=== PATIENT | female | born 1950 | race Caucasian/White ===

== ENCOUNTER 2017-03-16 13:49 | Emergency (ER) | payer MEDICARE, BC ==
[2017-03-16] MEDS ORDERED: Sodium Chloride 0.9% 2.5 ML Syringe FLUSH PRN (14:17)
[2017-03-16] MEDS ORDERED: Sodium Chloride 0.9% 1,000 ML IV ONE (14:17)
[2017-03-16] MEDS ORDERED: Sodium Chloride 0.9% 10 ML Syringe FLUSH PRN (14:17)
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
[2017-03-16 15:21] LABS: CHLORIDE,CL 103 mmol/L (98-110); SODIUM,NA 139 mmol/L (136-146)
--- NOTE | 2017-03-16 15:31 | CT ---
EXAMINATION: Non contrast CT head. Coronal and sagittal reformats. HISTORY: Pain, fall Comparison: MRI dated 02/18/2017 FINDINGS: No evidence of a mass, midline shift, hydrocephalus or edema. Mild generalized atrophy. Mild subcort ical and periventricular white matter hypodensities. There is a small focus of cortical hemorrhage in the right frontal lobe posteriorly and medially. No extra-axial fluid collection. No hypoattenuation changes in the major vascular territories to suggest acute infarct. No abnormal intracranial calcifications are detected. No evidence of substantial vascular calcificat ions. Paranasal sinuses and mastoid air cells are well aerated without substantial findings. There is a sm all periorbital supraorbital collection noted, also likely a small hematoma. The intraorbital content s appear intact. Pituitary fossa appears unremarkable. Calvarium is intact. No evidence of skull fracture. There is a large hematoma within the subcutaneous tissues overlying the right parietal region. IMPRESSION: 1. Small petechial cortical hemorrhage in the right frontal lobe posteriorly. 2. Right periorbital and right posterior parietal subcutaneous hematomas. 3. Mild small vessel ischemic changes.
--- NOTE | 2017-03-16 15:35 | CT ---
EXAMINATION: CT cervical spine HISTORY: Fall COMPARISON: MRI dated 02/18/2017 TECHNIQUE: Axial CT images obtained through the cervical spine without contrast. Coronal and sagittal reconstructions obtained. FINDINGS: There is mild reversal of the normal cervical lordosis. The vertebral body heights are michael sly maintained. Moderate marginal osteophytes are noted most prominent from C4 to C7. There is no fra cture or acute osseous abnormality demonstrated. Facet arthritic changes are noted. Temporomandibular joints are symmetric. The paravertebral soft tissues appear normal. No cervical lymphadenopathy. The lung apices are clear. IMPRESSION: 1. Degenerative changes without acute findings.
--- NOTE | 2017-03-16 15:37 | CR ---
EXAMINATION: Left wrist HISTORY: Fall COMPARISON: None TECHNIQUE: 3 views FINDINGS/IMPRESSION: There is no acute osseous abnormality, dislocation, or fracture. Moderate osteoa rthritic changes are noted at the first CMC joint. There is mild negative ulnar variance. Bone minera lization is otherwise normal.
--- NOTE | 2017-03-16 15:38 | CR ---
EXAMINATION: Left thumb HISTORY: Pain COMPARISON: None TECHNIQUE: 3 views FINDINGS/IMPRESSION: Moderate degenerative changes noted at the first CMC joint and the first interph alangeal joint. No fracture or acute osseous abnormality noted. Bone mineralization and joint spaces are otherwise preserved.
--- NOTE | 2017-03-16 15:39 | CR ---
EXAMINATION: Portable chest radiograph. HISTORY: Fall. FINDINGS: The trachea is midline. The cardiomediastinal silhouette is within normal limits. No pulmonary infilt rates, effusions or pneumothorax. Osseous structures appear unremarkable. IMPRESSION: No acute cardiopulmonary process.
[2017-03-16] MEDS ORDERED: Acetaminophen 325 MG Tab PO ONE (16:00)
[2017-03-16 16:22] VITALS: BP 180/83
== END 2017-03-16 16:31 ==
LOC: MW.ED 13:49
DX: S06.300A Unspecified focal traumatic brain injury without loss of consciousness, initial encounter (principal); S60.812A Abrasion of left wrist, initial encounter; S60.312A Abrasion of left thumb, initial encounter; I10 Essential (primary) hypertension; M19.90 Unspecified osteoarthritis, unspecified site; Z98.49 Cataract extraction status, unspecified eye; Z98.890 Other specified postprocedural states; Z79.899 Other long term (current) drug therapy; W10.8XXA Fall (on) (from) other stairs and steps, initial encounter
CPT/HCPCS: 36415; 70450; 71010; 72125; 73110; 73140; 80053; 81001; 84484; 85025; 85610; 96360; 99285; A9270; J7040; 99283

== ENCOUNTER 2018-10-23 09:33 | Inpatient (IN) | payer MEDICARE, BC ==
[~2018-10-23 09:33] MED LIST: Acetaminophen 1,000 MG in Premix Bag 1 BAG IV SCH; Famotidine 20 MG/2 ML SDV IVPUSH SCH; Lidocaine 2% 5 ML SDV ONE; Midazolam 1 MG/ML 2 ML SDV ONE; Propofol 200 MG/20 ML SDV ONE; Ropivacaine 49.25 ML, Ketorolac 30 MG, EPINEPHrine 0.5 MG, cloNIDine 80 MCG in Sodium C... INJECT SCH; Scopolamine 1.5 MG Transdermal Patch TRDERM SCH; Tranexamic Acid 2,000 MG in Sodium Chloride 0.9% 100 ML IV ONE; ceFAZolin 2 GM in Premix Bag 1 BAG IV SCH; fentaNYL 100 MCG/2 ML SDV ONE
[2018-10-23] MEDS ORDERED: Sodium Chloride 0.9% 0 ML ONE (10:06)
[2018-10-23] MEDS ORDERED: ceFAZolin 1 GM Vial ONE (10:06)
--- NOTE | 2018-10-23 10:28 | PCM.PREANE ---
Preanesthetic Assessment - Anesthesia/Transfusion/Family Hx Anesthesia History: Prior Anesthesia Without Reaction Other Type of Anesthesia Reaction Comment: son has problem waking up after surgery Transfusion History: No Prior Transfusion(s) - Review of Systems General: No Symptoms Pulmonary: No Symptoms Cardiovascular: No Symptoms Gastrointestinal: No Symptoms Neurological: No Symptoms Other: Reports: None - Physical Assessment NPO Status Date: 10/22/18 NPO Status Time: 23:00 Height: 1.73 m Weight: 97.976 kg ASA Class: 3 Mental Status: Alert & Oriented x3 Airway Class: Mallampati = 3 Dentition: Reports: Normal Dentition Thyro-Mental Finger Breadths: 3 Mouth Opening Finger Breadths: 3 ROM/Head Extension: Full Lungs: Clear to Auscultation, Normal Respiratory Effort Cardiovascular: Regular Rate, Regular Rhythm - Allergies Allergies/Adverse Reactions: Allergies Allergy/AdvReac Type Severity Reaction Status Date / Time No Known Allergies Allergy Verified 10/17/18 11:50 - Acknowledgements Anesthesia Type Planned: Spinal (with MAC. I discussed risks such as back pain, awareness, and conversion to general anesthesia if the surgery is prolonged or the spinal anesthetic fails. ) Pt an Appropriate Candidate for the Planned Anesthesia: Yes Alternatives and Risks of Anesthesia Discussed w Pt/Guardian: Yes Pt/Guardian Understands and Agrees with Anesthesia Plan: Yes PreAnesthesia Questionnaire - Past Health History Medical/Surgical History: Denies Medical/Surgical History HEENT History: Reports: Macular Degeneration, Other (See Below) Other HEENT History: wears glasses Cardiovascular History: Reports: High Cholesterol, Hypertension Other Cardiovascular History: ekg from 2019: sr with first degree AV block and incomplete right bbb, marked left axis deviation, unchanged from previous ekgs per primary care doctor. Respiratory History: Reports: Sleep Apnea Other Respiratory History: uses CPAP. She has postnasal drip in the mornings which is from her CPAP. Gastrointestinal History: Reports: None Genitourinary History: Reports: None LMP (Approximate): Other (See Below) (Currently has LABIA SORES secondary to low estrogen.) Musculoskeletal History: Reports: Back Pain, Chronic (states that the left hip is the source of her back pain. left hip, preop pain score 6/10. Ambulates with a cane-has a fear of falling due to previous falls in the past, one which resulted in a brain breed-2017. Neurodeficit is "short term memory loss".), Osteoarthritis Other Musculoskeletal History: spinal stenosis Neurological History: Reports: Concussion, Head Trauma Other Neuro History: small brain bleed due to fall in Mar 2017 Psychiatric History: Reports: Depression, Panic Attack (and anxiety-she has a fear of falling.) Endocrine/Metabolic History: Reports: Obesity/BMI 30+ Hematologic History: Reports: None Immunologic History: Reports: None Oncologic (Cancer) History: Reports: Breast (breast cancer-radiation December of 2017. Cured) Dermatologic History: Reports: None - Infectious Disease History Infectious Disease History: Reports: Chicken Pox, Mumps - Past Surgical History Head Surgeries/Procedures: Reports: None HEENT Surgical History: Reports: Cataract Surgery Cardiovascular Surgical History: Reports: None Respiratory Surgical History: Reports: None GI Surgical History: Reports: Colonoscopy Female Surgical History: Reports: Breast Biopsy, Hysterectomy, Mastectomy, Oophorectomy Other Female Surgeries/Procedures: left modified mastectomy Endocrine Surgical History: Reports: None Neurological Surgical History: Reports: None Musculoskeletal Surgical History: Reports: Carpal Tunnel Oncologic Surgical History: Reports: Biopsy of Breast, Mastectomy Dermatological Surgical History: Reports: None - SUBSTANCE USE Smoking Status *Q: Never Smoker Recreational Drug Use History: No - HOME MEDS Home Medications: Home Meds Losartan/Hydrochlorothiazide [Losartan-HCTZ 50-12.5 MG] 1 each PO DAILY [History] Acetaminophen [Tylenol Extra Strength] 2 tab PO ASDIRECTED PRN 10/17/18 [History ] Anastrozole [Arimidex] 1 mg PO DAILY 10/17/18 [History] Calcium Carb & Citrate/Vit D3 [Calcium + D3 ER Tablet] 1 tab PO BID 10/17/18 [ History] Carboxymethyl/Glycerin/Poly80 [Refresh Optive Advanced Drops] 1 drop EYEBOTH ASDIRECTED PRN 10/17/18 [History] Estrogens, Conjugated [Premarin Vaginal Crm] 1 applic TOP ASDIRECTED 10/17/18 [ History] Gluc HCl/Csa/José Antonio Hy/Hyalur Ac [Glucosamine Chondroitin] 1 tab PO BID 10/17/18 [ History] Ibuprofen 600 mg PO QID PRN 10/17/18 [History] Magnesium Oxide 1 tab PO BEDTIME 10/17/18 [History] [place]-3/DHA/Epa/Fish Oil [Fish Oil 1,000 mg Softgel] 1 mg PO BID 10/17/18 [ History] Polyethylene Glycol 3350 [Miralax] 1 dose PO DAILY 10/17/18 [History] Rosuvastatin [Crestor] 10 mg PO DAILY 10/17/18 [History] Vit A/Vit C/Vit E/Zinc/Copper [Preservision] 1 tab PO BID 10/17/18 [History] - CURRENT (IN HOUSE) MEDS Current Meds: Current Medications Famotidine (Pepcid) 40 mg IVPUSH ONARRIVE SMITH Acetaminophen 1,000 mg/ Premix 100 mls @ 400 mls/hr IV ONARRIVE SMITH Cefazolin Sodium/Dextrose 2 gm (/ Premix) 50 mls @ 100 mls/hr IV ONCALL SMITH Ropivacaine 49.25 ml/Ketorolac Tromethamine 30 mg/Epinephrine HCl 0.5 mg/ Clonidine HCl 80 mcg/ Sodium Chloride 100 mls @ 50 mls/sec INJECT ASDIRECTED SMITH Lactated Ringer's (Ringers, Lactated) 1,000 mls @ 100 mls/hr IV ASDIRECTED SMITH Scopolamine (Transderm-Scop) 1.5 mg TRDERM ONARRIVE SMITH Discontinued Medications Cefazolin Sodium (Ancef) Confirm Administered Dose 2 gm .ROUTE .STK-MED ONE Stop: 10/23/18 10:07 Fentanyl (Sublimaze) Confirm Administered Dose 100 mcg .ROUTE .STK-MED ONE Stop: 10/23/18 08:38 Tranexamic Acid 2,000 mg/ (Sodium Chloride) 120 mls @ 600 mls/hr IV ASDIRECTED ONE Stop: 10/23/18 06:11 Sodium Chloride (Normal Saline) Confirm Administered Dose 20 mls @ as directed .ROUTE .STK-MED ONE Stop: 10/23/18 10:07 Lidocaine (Xylocaine-Mpf 2%) Confirm Administered Dose 5 ml .ROUTE .STK-MED ONE Stop: 10/23/18 08:42 Midazolam HCl (Versed 1 Mg/Ml) Confirm Administered Dose 2 mg .ROUTE .STK-MED ONE Stop: 10/23/18 08:39 Propofol (Diprivan 20 Ml) Confirm Administered Dose 400 mg .ROUTE .STK-MED ONE Stop: 10/23/18 08:38 Tranexamic Acid (Cyklokapron) Confirm Administered Dose 2,000 mg .ROUTE .STK- MED ONE Stop: 10/23/18 09:53
[2018-10-23] MEDS: Lactated Ringers 1,000 ML IV SCH ×2 (10:32→14:30)
[2018-10-23] MEDS ORDERED: Labetalol 100 MG/20 ML MDV IVPUSH STA (10:33)
[2018-10-23] MEDS ORDERED: Midazolam 1 MG/ML 2 ML SDV ONE (11:57)
[2018-10-23] MEDS ORDERED: Propofol 200 MG/20 ML SDV ONE (12:42)
[2018-10-23] MEDS ORDERED: Sodium Chloride 0.9% 2.5 ML Syringe FLUSH PRN (13:15)
[2018-10-23] MEDS ORDERED: Docusate Sodium 100 MG Cap PO PRN (13:15)
[2018-10-23] MEDS ORDERED: Bisacodyl 10 MG Supp RECTAL PRN (13:15)
[2018-10-23] MEDS ORDERED: Sodium Chloride 0.9% 10 ML Syringe FLUSH PRN (13:15)
[2018-10-23] MEDS ORDERED: Morphine PF 30 MG/30 ML PCA Vial IV PRN (13:15)
[2018-10-23] MEDS ORDERED: Ondansetron 4 MG/2 ML SDV IVPUSH PRN (13:15)
[2018-10-23] MEDS ORDERED: Aluminum Hydroxide/Magnesium Hydroxide/Simethicone Susp 30 ML Cup PO PRN (13:15)
[2018-10-23] MEDS ORDERED: diphenhydrAMINE 25 MG Cap PO PRN (13:15)
[2018-10-23] MEDS ORDERED: Carboxymethylcellulose Sodium 0.5% Ophth Soln 0.4 ML UD Box of 30 EYEBOTH PRN (13:19)
--- NOTE | 2018-10-23 13:34 | PCM.OPNOTE ---
- General Post-Op/Procedure Note Date of Surgery/Procedure: 10/23/18 Operative Procedure(s): R TKA Post-Op Diagnosis: DJD R knee Anesthesia Technique: Moderate Sedation, Spinal Primary Surgeon: Daniela You Herpetology Teacher: Mikaela Chisholm Herpetology Teacher: Monique Landers EBL in mLs: 50 Condition: Good Free Text/Narrative:: 36 min-tt #[id number]
[2018-10-23] MEDS ORDERED: EPINEPHrine 1:10,000 1 MG/10 ML Syringe IVPUSH PRN (13:40)
[2018-10-23] MEDS ORDERED: Naloxone 0.4 MG/ML Syringe IVPUSH PRN (13:40)
[2018-10-23] MEDS ORDERED: Albuterol 0.083% 2.5 MG/3 ML Neb Soln NEB PRN (13:40)
[2018-10-23] MEDS ORDERED: 50% Dextrose in Water 50 ML Syringe IVPUSH PRN (13:40)
[2018-10-23] MEDS ORDERED: fentaNYL 100 MCG/2 ML SDV IVPUSH PRN (13:40)
[2018-10-23] MEDS ORDERED: Atropine 0.1 MG/ML 10 ML Syringe IVPUSH PRN ×2 (13:40)
[2018-10-23] MEDS: Ketorolac 30 MG/ML SDV IVPUSH SCH ×2 (13:49→19:10)
[2018-10-23] MEDS ORDERED: Meperidine PF 25 MG/ML Syringe ONE (13:56)
[2018-10-23] MEDS ORDERED: Meperidine PF 25 MG/ML Syringe IVPUSH PRN (13:56)
--- NOTE | 2018-10-23 14:25 | PCM.POSTAN ---
POST ANESTHESIA ASSESSMENT - MENTAL STATUS Mental Status: Alert, Oriented - RESPIRATORY Respiratory Status: Respiratory Rate WNL, Airway Patent, O2 Saturation Stable - CARDIOVASCULAR CV Status: Pulse Rate WNL, Blood Pressure Stable - GASTROINTESTINAL GI Status: No Symptoms - PAIN Pain Score: 0 - POST OP HYDRATION Hydration Status: Adequate & Stable - OBSERVATIONS Free Text/Narrative:: Pt stable for discharge to phase II on med/surg
--- NOTE | 2018-10-23 17:17 | CR ---
EXAMINATION: Right knee HISTORY: Arthroplasty COMPARISON: Radiographs dated 03/29/2017. TECHNIQUE: 2 views FINDINGS/IMPRESSION: Right total knee hardware is demonstrated in good position and alignment. Postoperative soft tissue changes are noted.
[2018-10-23] MEDS: Acetaminophen 1,000 MG in Premix Bag 1 BAG IV SCH ×2 (18:15→23:21)
--- NOTE | 2018-10-23 19:43 | OR ---
SURGEON: Daniela You MD DATE OF PROCEDURE: 10/23/2018 PREOPERATIVE DIAGNOSIS: Degenerative joint disease, right knee, tricompartmental. POSTOPERATIVE DIAGNOSIS: Degenerative joint disease, right knee, tricompartmental. PROCEDURE: Right total knee arthroplasty using patient-specific instrumentation. TURPENTINE DISTILLER: Mikaela Chisholm PA-C and AILIN Delgado. ANESTHESIA: Spinal with sedation. ESTIMATED BLOOD LOSS: 50 mL. TOURNIQUET TIME: 36 minutes. COMPLICATIONS: None. DEEP VENOUS THROMBOSIS PROPHYLAXIS: PAS boot and OSMANY hose to the nonoperative leg. IMPLANTS USED: Dejon Persona femoral component size 9 narrow (LPS), tibial component size E, 10 mm all-polyethylene articular surface, and 32 mm all-polyethylene patella. INTRAOPERATIVE FINDINGS: Showed tricompartmental degenerative changes. Osteophyte formation was also noted. No significant synovitis was found. BRIEF HISTORY: Laura is a 68-year-old female who has had complaint of progressive right knee pain. X-rays did confirm tricompartmental degenerative changes. Due to her lack of response to conservative treatment, I did recommend surgical intervention. The risks and goals of procedure were discussed with the patient and were documented preoperatively. She agreed to proceed. DESCRIPTION OF PROCEDURE: The patient was properly identified and brought to the operating room. The patient was then transferred from the operating room cart and placed on the operating table in a supine position. Anesthesia was administered by the anesthesia staff. After adequate anesthesia was obtained, a well-padded tourniquet was applied to the surgical lower extremity. Argueta catheter was placed. The lower extremity was then prepped in standard fashion using ChloraPrep solution. It was then sterilely draped. A time-out was performed to ensure correct site and procedure. Preoperative antibiotics were given along with one gram of tranexamic acid IV. The surgical site had been marked preoperatively. An Esmarch was used to exsanguinate the right lower extremity and the tourniquet was inflated. An incision was made over the anterior aspect of the knee. The subcutaneous tissues were dissected down to the level of the fascia. A medial parapatellar approach to the knee was made. A portion of the infrapatellar fat pad was then excised. The distal femur was then exposed. The femoral patient-specific cutting guide was then placed. Pins were also placed. The distal femoral cutting block was placed and the distal femoral cut was made. Instrumentation was then removed. Both Whitesides' line and the epicondylar axis were then marked with electrocautery. The 4-in-1 cutting block was placed. This was placed in a slightly externally rotated position, which corresponded well with the previously drawn lines. The cutting guide was then pinned into position. An Patrick wing guide was used to check the depth of resection of our anterior condylar cut and it was felt that no notching would occur. The anterior condylar cut was then made followed by the posterior condylar cut. Both the posterior chamfer and anterior chamfer cuts were then made. The cutting block was then removed along with the excess bony remnants. We then turned our attention to the tibia. The anterior cruciate ligament and posterior cruciate ligament were released and a posterior cruciate ligament retractor was placed to allow the tibia to be pulled anteriorly. The tibial patient-specific guide was then placed on the proximal tibia. This fit anatomically. The pins were then placed. The proximal tibia cutting guide was then placed and screwed into position. The proximal tibial resection was then made with care being taken to protect the patellar tendon. The bony resection was then removed. The remainder of the medial and lateral meniscus were then excised. Care was taken to protect the popliteus tendon. The tibia was then sized to the appropriate size. The distal femur was then elevated. The posterior capsule was stripped off of the distal femur both medially and laterally. The posterior capsule along with the medial and lateral gutters were then injected with a standard mixture consisting of clonidine, epinephrine, Toradol, and Ropivacaine, unless any allergies were found preoperatively. The femoral component was then placed onto the distal femur in a slightly lateral position. This fit the femur well. A box cut was then made without difficulty. This was then removed. The tibial trial along with the polyethylene liner was then placed. The knee came easily into full extension and was stable to varus and valgus stressing both in full extension and flexion. Any additional releases were performed at this time. We then returned our attention to the patella. The patella was everted and towel clamps were used to hold the patella in position. It was resected to a 15 millimeter thickness. It was then sized to the appropriate size. It was prepared in the usual fashion after placing the predetermined size clamps. This was placed in a slightly superior and medial position. The clamp was then removed. The patellar trial button was placed. The knee was taken through a range of motion using the no-touch technique. The patella tracked centrally. A drop patrica was then placed to check alignment. All instruments were then removed from the knee. The tibial sizer was then placed on the tibia. The tibia was prepared in the usual fashion using the reamer and broach. This was then removed. All bony surfaces were copiously irrigated with Pulsavac solution. They were then suctioned dry. Cement was prepared on the back table in the usual manner. Once it was prepared, the bone ends were again suctioned dry. The tibia was cemented into place first. This was malleted into position. Excess cement was then cleared. The femur was then placed in a similar manner. We placed the polyethylene trial into place and the knee was brought into full extension. An axial load was placed while keeping the knee in full extension. The patella button was also cemented into position and the clamp was used to hold this in place as the cement was allowed to cure. The wound was again copiously irrigated with saline solution using a Pulsavac patron attendant. After we had adequate curing of the cement, the knee was again taken through a range of motion. The size of the polyethylene was then determined. The polyethylene trial was then removed. The tibial tray was suctioned to make sure there was no remaining soft tissue or cement. Excess cement was cleared from around the edges of the prosthesis as well. The tourniquet was then deflated. We were able to observe for any excess bleeding and none was noted. Electrocautery was used to maintain hemostasis. An additional gram of tranexamic acid was given IV. The retractors were again placed and the predetermined polyethylene was then placed. This was locked into position without difficulty. The knee was again taken through a range of motion with no change from the prior exam. The fascial layer was closed with Number One Vicryl. The subcutaneous tissues were closed with 2-0 Vicryl. The skin was closed with willie. Xeroform gauze was placed over the wound and a bulky dressing was applied. The patient was then awakened from anesthesia and transferred back to the operating room cart. They were brought to the recovery room in stable condition. All needle and sponge counts were correct. MURIEL / YAHAIRA /[id number] MTDD
[2018-10-23] MEDS: Magnesium Oxide 400 MG Tab PO SCH (20:18)
[2018-10-23] MEDS: ceFAZolin 2 GM in Premix Bag 1 BAG IV SCH (20:18)
[2018-10-23] MEDS: PRESERVISION PO SCH (20:20)
[2018-10-23] MEDS: oxyCODONE 5 MG Tab PO PRN (23:21)
[2018-10-24] MEDS: Ketorolac 30 MG/ML SDV IVPUSH SCH (01:39)
[2018-10-24] MEDS: Lactated Ringers 1,000 ML IV SCH (01:50)
[2018-10-24] MEDS: ceFAZolin 2 GM in Premix Bag 1 BAG IV SCH (03:41)
[2018-10-24] MEDS: oxyCODONE 5 MG Tab PO PRN (03:48)
[2018-10-24] MEDS: Acetaminophen 1,000 MG in Premix Bag 1 BAG IV SCH (05:12)
[2018-10-24] MEDS ORDERED: Morphine 2 MG/ML Syringe IVPUSH PRN (06:00)
--- NOTE | 2018-10-24 08:22 | PCM.SURGPN ---
- General Info Date of Service: 10/24/18 Date of Surgery/Procedure: 10/23/18 POD#: 1 Functional Status: Reports: Pain Controlled - Review of Systems General: Reports: No Symptoms Pulmonary: Reports: No Symptoms Cardiovascular: Reports: No Symptoms Gastrointestinal: Reports: Nausea, Vomiting Musculoskeletal: Reports: Leg Pain Systems Review Comment:: pt up to chair for breakfast some nausea/vomiting last night, but tolerating bland diet so far today pain controlled with PO/IV pain medications first time OOB to chair this morning concerned with ascending stairs at home after discharge - Patient Data Vitals - Most Recent: Last Vital Signs Temp 97.6 F 10/24/18 07:48 Pulse 64 10/24/18 07:48 Resp 15 10/24/18 07:48 BP 101/54 L 10/24/18 07:48 Pulse Ox 95 10/24/18 07:48 Weight - Most Recent: 97.976 kg I&O - Last 24 Hours: Intake & Output 10/23/18 10/24/18 10/24/18 22:59 06:59 14:59 Intake Total 333 1908 Output Total 425 1400 Balance -92 508 Lab Results Last 24 Hrs: Laboratory Results - last 24 hr 10/23/18 10/24/18 Range/Units 10:37 05:00 Hgb 11.4 L (12.0-16.0) g/dL Hct 35.7 L (36.0-46.0) % Blood Type A POSITIVE Antibody Screen NEGATIVE Med Orders - Current: Current Medications Al Hydroxide/Mg Hydroxide (Mag-Al Plus) 30 ml PO Q4H PRN PRN Reason: Indigestion Anastrozole (Arimidex) 1 mg PO DAILY [facility] Artificial Tears (Refresh Plus 0.5%) 1 each EYEBOTH ASDIRECTED PRN PRN Reason: Dry Eyes Aspirin (Ecotrin) 325 mg PO BID [facility] Bisacodyl (Dulcolax) 10 mg RECTAL DAILY PRN PRN Reason: Constipation Celecoxib (Celebrex) 200 mg PO BID [facility] Diphenhydramine HCl (Benadryl) 25 - 50 mg PO Q6H PRN PRN Reason: Itching Docusate Sodium (Colace) 100 mg PO BID PRN PRN Reason: Constipation Famotidine (Pepcid) 40 mg IVPUSH ONARRIVE [facility] Last Admin: 10/23/18 10:32 Dose: 40 mg Famotidine (Pepcid) 40 mg PO DAILY [facility] HCTZ/Losartan Potassium (Hyzaar 50-12.5 Mg) 1 tab PO DAILY [facility] Acetaminophen 1,000 mg/ Premix 100 mls @ 400 mls/hr IV ONARRIVE [facility] Last Admin: 10/23/18 10:32 Dose: 400 mls/hr Lactated Ringer's (Ringers, Lactated) 1,000 mls @ 100 mls/hr IV ASDIRECTED [facility] Last Admin: 10/24/18 01:50 Dose: 100 mls/hr Magnesium Oxide (Magnesium Oxide) 400 mg PO BEDTIME [facility] Last Admin: 10/23/18 20:18 Dose: 400 mg Morphine Sulfate (Morphine) 1 - 3 mg IVPUSH Q3H PRN PRN Reason: Pain Ondansetron HCl (Zofran) 4 mg IVPUSH Q6H PRN PRN Reason: Nausea/Vomiting Last Admin: 10/23/18 21:06 Dose: 4 mg Oxycodone/Acetaminophen (Percocet 325-5 Mg) 1 - 2 tab PO Q4H PRN PRN Reason: Pain [Preservision] 1 Tab 1 each PO BID [facility] Last Admin: 10/23/18 20:20 Dose: Not Given Polyethylene Glycol (Miralax) 17 gm PO DAILY [facility] Rosuvastatin Calcium (Crestor) 10 mg PO DAILY [facility] Scopolamine (Transderm-Scop) 1.5 mg TRDERM ONARRIVE [facility] Last Admin: 10/23/18 10:32 Dose: 1.5 mg Sodium Chloride (Saline Flush) 10 ml FLUSH ASDIRECTED PRN PRN Reason: Keep Vein Open Sodium Chloride (Saline Flush) 2.5 ml FLUSH ASDIRECTED PRN PRN Reason: Keep Vein Open Discontinued Medications Albuterol (Proventil Neb Soln) 2.5 mg NEB ONETIME PRN PRN Reason: Wheezing Atropine Sulfate (Atropine 0.1 Mg/Ml) 0.5 mg IVPUSH ASDIRECTED PRN PRN Reason: Hypo-perfusion Atropine Sulfate (Atropine 0.1 Mg/Ml) 1 mg IVPUSH ASDIRECTED PRN PRN Reason: Hypo-Perfusion Cefazolin Sodium (Ancef) Confirm Administered Dose 2 gm .ROUTE .STK-MED ONE Stop: 10/23/18 10:07 Dextrose/Water (Dextrose 50% In Water) 50 ml IVPUSH ASDIRECTED PRN PRN Reason: Hypoglycemia Epinephrine HCl (Epinephrine 1:10,000) 1 mg IVPUSH ASDIRECTED PRN PRN Reason: ACLS Guidelines Fentanyl (Sublimaze) Confirm Administered Dose 100 mcg .ROUTE .STK-MED ONE Stop: 10/23/18 08:38 Fentanyl (Sublimaze) 50 mcg IVPUSH Q5M PRN PRN Reason: Pain Cefazolin Sodium/Dextrose 2 gm (/ Premix) 50 mls @ 100 mls/hr IV ONCALL [facility] Ropivacaine 49.25 ml/Ketorolac Tromethamine 30 mg/Epinephrine HCl 0.5 mg/ Clonidine HCl 80 mcg/ Sodium Chloride 100 mls @ 50 mls/sec INJECT ASDIRECTED [facility] Tranexamic Acid 2,000 mg/ (Sodium Chloride) 120 mls @ 600 mls/hr IV ASDIRECTED ONE Stop: 10/23/18 06:11 Last Admin: 10/23/18 14:30 Dose: Not Given Sodium Chloride (Normal Saline) Confirm Administered Dose 0 mls @ as directed .ROUTE .STK-MED ONE Stop: 10/23/18 10:07 Cefazolin Sodium/Dextrose (Ancef) Confirm Administered Dose 100 mls @ as directed .ROUTE .[facility] ONE Stop: 10/23/18 12:31 Acetaminophen 1,000 mg/ Premix 100 mls @ 400 mls/hr IV Q6H [facility] Stop: 10/24/18 06:14 Last Admin: 10/24/18 05:12 Dose: 400 mls/hr Cefazolin Sodium/Dextrose 2 gm (/ Premix) 50 mls @ 100 mls/hr IV Q8H [facility] Stop: 10/24/18 04:29 Last Admin: 10/24/18 03:41 Dose: 100 mls/hr Ketorolac Tromethamine (Toradol) 30 mg IVPUSH Q6H [facility] Stop: 10/24/18 05:00 Last Admin: 10/24/18 01:39 Dose: 30 mg Labetalol HCl (Normodyne) 5 mg IVPUSH ONETIME STA; Protocol Stop: 10/23/18 10:34 Last Admin: 10/23/18 14:30 Dose: Not Given Lidocaine (Xylocaine-Mpf 2%) Confirm Administered Dose 5 ml .ROUTE .STK-MED ONE Stop: 10/23/18 08:42 Meperidine HCl (Demerol) 12.5 mg IVPUSH .ONETIME PRN PRN Reason: Shivering Meperidine HCl (Demerol) Confirm Administered Dose 25 mg .ROUTE .STK-MED ONE Stop: 10/23/18 13:57 Last Admin: 10/23/18 14:30 Dose: Not Given Midazolam HCl (Versed 1 Mg/Ml) Confirm Administered Dose 2 mg .ROUTE .STK-MED ONE Stop: 10/23/18 08:39 Midazolam HCl (Versed 1 Mg/Ml) Confirm Administered Dose 2 mg .ROUTE .STK-MED ONE Stop: 10/23/18 11:58 Morphine Sulfate (Morphine Distributor Cleaner 30 Mg In 30 Ml) 30 mg IV ASDIRECTED PRN; Protocol PRN Reason: Pain Stop: 10/24/18 06:00 Last Admin: 10/23/18 14:22 Dose: 30 mg Naloxone HCl (Narcan) 0.1 mg IVPUSH ASDIRECTED PRN PRN Reason: Respiratory Depression Oxycodone HCl (Oxycodone) 5 - 10 mg PO Q4H PRN PRN Reason: Pain Stop: 10/24/18 08:00 Last Admin: 10/24/18 03:48 Dose: 5 mg Propofol (Diprivan 20 Ml) Confirm Administered Dose 400 mg .ROUTE .STK-MED ONE Stop: 10/23/18 08:38 Propofol (Diprivan 20 Ml) Confirm Administered Dose 400 mg .ROUTE .STK-MED ONE Stop: 10/23/18 12:43 Tranexamic Acid (Cyklokapron) Confirm Administered Dose 2,000 mg .ROUTE .STK- MED ONE Stop: 10/23/18 09:53 - Exam Wound/Incisions: Dressing Dry and Intact. No: Drainage, Erythema General: Alert, Oriented Cardiovascular: Regular Rate, Regular Rhythm Extremities: Other (exam RLE - at/ehl/gastroc 5/5, dp 2+, sensation intact distally) Physical Findings Comment:: vss, afeb hgb 11.4 uo 2085mL - Problem List Review Problem List Initiated/Reviewed/Updated: Yes - My Orders Last 24 Hours: Active Orders 24 hr Category Date Time Status Blood Glucose Check, Bedside [RC] PRN Care 10/23/18 13:40 Active Communication Order [RC] PRN Care 10/23/18 13:16 Active Communication Order [RC] PRN Care 10/23/18 13:16 Active Insert Urinary Catheter [OM.PC] Q24H Care 10/23/18 08:00 Ordered Neurovascular Check [RC] Q2HR Care 10/23/18 13:16 Active Notify Provider Vital Signs [RC] ASDIRECTED Care 10/23/18 13:16 Active Oxygen Therapy [RC] PRN Care 10/23/18 13:40 Active RT Aerosol Therapy [RC] ASDIRECTED Care 10/23/18 13:40 Active RT Incentive Spirometry [RC] Q1HWA Care 10/23/18 13:16 Active Ready for Discharge [RC] PER UNIT ROUTINE Care 10/23/18 13:31 Active Urinary Catheter Removal [RC] ASDIRECTED Care 10/24/18 06:00 Active Vital Signs [RC] PER UNIT ROUTINE Care 10/23/18 13:16 Active Vital Signs [RC] PER UNIT ROUTINE Care 10/23/18 13:40 Active Wound Care [RC] DAILY Care 10/23/18 13:16 Active PT Evaluation and Treatment [CONS] Routine Cons 10/23/18 13:16 Active HEMOGLOBIN/HEMATOCRIT,HH [HEME] DAILY Lab 10/25/18 06:00 Ordered Acetaminophen/oxyCODONE [Percocet 325-5 MG] Med 10/24/18 06:00 Active 1 - 2 tab PO Q4H PRN Alum Hydrox/Mag Hydrox/Simeth [Mag-Al Plus] Med 10/23/18 13:15 Active 30 ml PO Q4H PRN Anastrozole [Arimidex] Med 10/24/18 09:00 Active 1 mg PO DAILY Aspirin [Ecotrin] Med 10/24/18 09:00 Active 325 mg PO BID Bisacodyl [Dulcolax] Med 10/23/18 13:15 Active 10 mg RECTAL DAILY PRN Carboxymethylcellulose Sodium [Refresh Plus 0.5%] Med 10/23/18 13:19 Active 1 each EYEBOTH ASDIRECTED PRN Celecoxib [CeleBREX] Med 10/24/18 09:00 Active 200 mg PO BID Docusate Sodium [Colace] Med 10/23/18 13:15 Active 100 mg PO BID PRN Famotidine [Pepcid] Med 10/24/18 09:00 Active 40 mg PO DAILY Hydrochlorothiazide/Losartan [Hyzaar 50-12.5 MG] Med 10/24/18 09:00 Active 1 tab PO DAILY Magnesium Oxide Med 10/23/18 21:00 Active 400 mg PO BEDTIME Morphine Med 10/24/18 06:00 Active 1 - 3 mg IVPUSH Q3H PRN Ondansetron [Zofran] Med 10/23/18 13:15 Active 4 mg IVPUSH Q6H PRN Patient's Own Medication [Ptom] Med 10/23/18 21:00 Active 1 each PO BID Polyethylene Glycol 3350 [MiraLAX] Med 10/24/18 09:00 Active 17 gm PO DAILY Rosuvastatin [Crestor] Med 10/24/18 09:00 Active 10 mg PO DAILY Sodium Chloride 0.9% [Saline Flush] Med 10/23/18 13:15 Active 10 ml FLUSH ASDIRECTED PRN Sodium Chloride 0.9% [Saline Flush] Med 10/23/18 13:15 Active 2.5 ml FLUSH ASDIRECTED PRN diphenhydrAMINE [Benadryl] Med 10/23/18 13:15 Active 25 - 50 mg PO Q6H PRN Antiembolic Hose [OM.PC] Routine Oth 10/23/18 08:00 Ordered Convert IV to Saline Lock [OM.PC] PRN Oth 10/24/18 06:00 Ordered Ice Therapy [OM.PC] Routine Oth 10/23/18 13:16 Ordered Sequential Compression Device [OM.PC] Routine Oth 10/23/18 08:00 Ordered Medication Orders Al Hydroxide/Mg Hydroxide (Mag-Al Plus) 30 ml PO Q4H PRN PRN Reason: Indigestion Anastrozole (Arimidex) 1 mg PO DAILY [facility] Artificial Tears (Refresh Plus 0.5%) 1 each EYEBOTH ASDIRECTED PRN PRN Reason: Dry Eyes Aspirin (Ecotrin) 325 mg PO BID [facility] Bisacodyl (Dulcolax) 10 mg RECTAL DAILY PRN PRN Reason: Constipation Celecoxib (Celebrex) 200 mg PO BID [facility] Diphenhydramine HCl (Benadryl) 25 - 50 mg PO Q6H PRN PRN Reason: Itching Docusate Sodium (Colace) 100 mg PO BID PRN PRN Reason: Constipation Famotidine (Pepcid) 40 mg IVPUSH ONARRIVE [facility] Last Admin: 10/23/18 10:32 Dose: 40 mg Famotidine (Pepcid) 40 mg PO DAILY [facility] HCTZ/Losartan Potassium (Hyzaar 50-12.5 Mg) 1 tab PO DAILY [facility] Acetaminophen 1,000 mg/ Premix 100 mls @ 400 mls/hr IV ONARRIVE [facility] Last Admin: 10/23/18 10:32 Dose: 400 mls/hr Lactated Ringer's (Ringers, Lactated) 1,000 mls @ 100 mls/hr IV ASDIRECTED [facility] Last Admin: 10/24/18 01:50 Dose: 100 mls/hr Infusion: 10/24/18 00:30 Dose: 100 mls/hr Admin: 10/23/18 14:30 Dose: 100 mls/hr Infusion: 10/23/18 14:30 Dose: 100 mls/hr Admin: 10/23/18 10:32 Dose: 100 mls/hr Magnesium Oxide (Magnesium Oxide) 400 mg PO BEDTIME [facility] Last Admin: 10/23/18 20:18 Dose: 400 mg Morphine Sulfate (Morphine) 1 - 3 mg IVPUSH Q3H PRN PRN Reason: Pain Ondansetron HCl (Zofran) 4 mg IVPUSH Q6H PRN PRN Reason: Nausea/Vomiting Last Admin: 10/23/18 21:06 Dose: 4 mg Oxycodone/Acetaminophen (Percocet 325-5 Mg) 1 - 2 tab PO Q4H PRN PRN Reason: Pain [Preservision] 1 Tab 1 each PO BID [facility] Last Admin: 10/23/18 20:20 Dose: Polyethylene Glycol (Miralax) 17 gm PO DAILY [facility] Rosuvastatin Calcium (Crestor) 10 mg PO DAILY [facility] Scopolamine (Transderm-Scop) 1.5 mg TRDERM ONARRIVE [facility] Last Admin: 10/23/18 10:32 Dose: 1.5 mg Sodium Chloride (Saline Flush) 10 ml FLUSH ASDIRECTED PRN PRN Reason: Keep Vein Open Sodium Chloride (Saline Flush) 2.5 ml FLUSH ASDIRECTED PRN PRN Reason: Keep Vein Open - Assessment Assessment (Free Text/Narrative):: POD#1 R TKA acute posthemorrhagic anemia - Plan Plan (Free Text/Narrative):: DC IV fluids - saline lock IV DC church DC [employer] - morphine IV prn breakthrough pain DC oxycodone - percocet 5/325 prn available ASA 325mg PO BID as DVT prophylaxis will change dressing to aquacel prior to discharge d/ch criteria discussed - mobilization, pain control, tolerating PO intake PT today pt has wheeled walker or script has been written anticipate up to 72 hour stay for IV pain medication and continued physical therapy pt will require FWW for safe mobility/stability until increased strength/gait independence s/p TKA - has been safely mobilizing in room with FWW. d/ch medications written
[2018-10-24] MEDS: Aspirin 325 MG Tab.EC PO SCH ×2 (08:28→20:11)
[2018-10-24] MEDS: Polyethylene Glycol 3350 Powder 17 GM Packet PO SCH (08:28)
[2018-10-24] MEDS: Rosuvastatin 10 MG Tab PO SCH (08:29)
[2018-10-24] MEDS: Celecoxib 100 MG Cap PO SCH ×2 (08:30→20:10)
[2018-10-24] MEDS: Hydrochlorothiazide/Losartan 12.5-50 mg Tab PO SCH (08:30)
[2018-10-24] MEDS: Acetaminophen/oxyCODONE 325-5 MG Tab PO PRN ×3 (08:31→18:20)
[2018-10-24] MEDS: Famotidine 20 MG Tab PO SCH (08:34)
[2018-10-24] MEDS: PRESERVISION PO SCH ×2 (08:35→22:55)
[2018-10-24] MEDS: Anastrozole 1 MG Tab PO SCH (10:07)
--- NOTE | 2018-10-24 11:56 | PCM48HPAN ---
Post Anesthesia Note - EVALUATION WITHIN 48HRS OF ANESTHETIC Vital Signs in Normal Range: Yes Patient Participated in Evaluation: Yes Respiratory Function Stable: Yes Airway Patent: Yes Cardiovascular Function Stable: Yes Hydration Status Stable: Yes Pain Control Satisfactory: Yes Nausea and Vomiting Control Satisfactory: Yes Mental Status Recovered: Yes Resp Rate: 15
[2018-10-24] MEDS: Magnesium Oxide 400 MG Tab PO SCH (20:11)
[2018-10-25] MEDS: Acetaminophen/oxyCODONE 325-5 MG Tab PO PRN ×3 (03:26→13:08)
[2018-10-25] MEDS: Celecoxib 100 MG Cap PO SCH (08:49)
[2018-10-25] MEDS: Rosuvastatin 10 MG Tab PO SCH (08:49)
[2018-10-25] MEDS: Hydrochlorothiazide/Losartan 12.5-50 mg Tab PO SCH (08:50)
[2018-10-25] MEDS: Famotidine 20 MG Tab PO SCH (08:50)
[2018-10-25] MEDS: Aspirin 325 MG Tab.EC PO SCH (08:51)
[2018-10-25] MEDS: Anastrozole 1 MG Tab PO SCH (08:51)
[2018-10-25] MEDS: Polyethylene Glycol 3350 Powder 17 GM Packet PO SCH (08:56)
[2018-10-25] MEDS: PRESERVISION PO SCH (08:57)
--- NOTE | 2018-10-25 10:42 | PCM.SURGPN ---
<Mikaela Chisholm R - Last Filed: 10/25/18 10:44> - General Info Date of Service: 10/25/18 Date of Surgery/Procedure: 10/23/18 POD#: 2 Functional Status: Reports: Pain Controlled, Tolerating Diet, Ambulating, Urinating - Review of Systems General: Reports: No Symptoms Pulmonary: Reports: No Symptoms Cardiovascular: Reports: No Symptoms Gastrointestinal: Reports: No Symptoms Genitourinary: Reports: No Symptoms Systems Review Comment:: pt resting comfortably in bed pain controlled participating with PT, some weakness/instability in L knee, pt believes d/t DJD , no significant pain was able to complete stairs has had some increase in anxiety while in the hospital would like to go home this afternoon - Patient Data Vitals - Most Recent: Last Vital Signs Temp 97.8 F 10/25/18 07:30 Pulse 80 10/25/18 07:30 Resp 18 10/25/18 07:30 BP 115/60 10/25/18 07:30 Pulse Ox 94 L 10/25/18 07:30 Weight - Most Recent: 97.976 kg I&O - Last 24 Hours: Intake & Output 10/24/18 10/25/18 10/25/18 22:59 06:59 14:59 Intake Total 1530 240 Output Total 500 Balance 1030 240 Lab Results Last 24 Hrs: Laboratory Results - last 24 hr 10/25/18 Range/Units 05:32 Hgb 10.9 L (12.0-16.0) g/dL Hct 34.1 L (36.0-46.0) % Med Orders - Current: Current Medications Al Hydroxide/Mg Hydroxide (Mag-Al Plus) 30 ml PO Q4H PRN PRN Reason: Indigestion Anastrozole (Arimidex) 1 mg PO DAILY [facility] Last Admin: 10/25/18 08:51 Dose: 1 mg Artificial Tears (Refresh Plus 0.5%) 1 each EYEBOTH ASDIRECTED PRN PRN Reason: Dry Eyes Aspirin (Ecotrin) 325 mg PO BID [facility] Last Admin: 10/25/18 08:51 Dose: 325 mg Bisacodyl (Dulcolax) 10 mg RECTAL DAILY PRN PRN Reason: Constipation Celecoxib (Celebrex) 200 mg PO BID [facility] Last Admin: 10/25/18 08:49 Dose: 200 mg Diphenhydramine HCl (Benadryl) 25 - 50 mg PO Q6H PRN PRN Reason: Itching Docusate Sodium (Colace) 100 mg PO BID PRN PRN Reason: Constipation Famotidine (Pepcid) 40 mg IVPUSH ONARRIVE [facility] Last Admin: 10/23/18 10:32 Dose: 40 mg Famotidine (Pepcid) 40 mg PO DAILY [facility] Last Admin: 10/25/18 08:50 Dose: 40 mg HCTZ/Losartan Potassium (Hyzaar 50-12.5 Mg) 1 tab PO DAILY [facility] Last Admin: 10/25/18 08:50 Dose: 1 tab Acetaminophen 1,000 mg/ Premix 100 mls @ 400 mls/hr IV ONARRIVE [facility] Last Admin: 10/23/18 10:32 Dose: 400 mls/hr Lactated Ringer's (Ringers, Lactated) 1,000 mls @ 100 mls/hr IV ASDIRECTED [facility] Last Admin: 10/24/18 01:50 Dose: 100 mls/hr Magnesium Oxide (Magnesium Oxide) 400 mg PO BEDTIME [facility] Last Admin: 10/24/18 20:11 Dose: 400 mg Morphine Sulfate (Morphine) 1 - 3 mg IVPUSH Q3H PRN PRN Reason: Pain Last Admin: 10/24/18 15:20 Dose: 2 mg Ondansetron HCl (Zofran) 4 mg IVPUSH Q6H PRN PRN Reason: Nausea/Vomiting Last Admin: 10/23/18 21:06 Dose: 4 mg Oxycodone/Acetaminophen (Percocet 325-5 Mg) 1 - 2 tab PO Q4H PRN PRN Reason: Pain Last Admin: 10/25/18 08:50 Dose: 2 tab [Preservision] 1 Tab 1 each PO BID [facility] Last Admin: 10/25/18 08:57 Dose: Not Given Polyethylene Glycol (Miralax) 17 gm PO DAILY [facility] Last Admin: 10/25/18 08:56 Dose: 17 gm Rosuvastatin Calcium (Crestor) 10 mg PO DAILY [facility] Last Admin: 10/25/18 08:49 Dose: 10 mg Scopolamine (Transderm-Scop) 1.5 mg TRDERM ONARRIVE [facility] Last Admin: 10/23/18 10:32 Dose: 1.5 mg Sodium Chloride (Saline Flush) 10 ml FLUSH ASDIRECTED PRN PRN Reason: Keep Vein Open Sodium Chloride (Saline Flush) 2.5 ml FLUSH ASDIRECTED PRN PRN Reason: Keep Vein Open Discontinued Medications Albuterol (Proventil Neb Soln) 2.5 mg NEB ONETIME PRN PRN Reason: Wheezing Atropine Sulfate (Atropine 0.1 Mg/Ml) 0.5 mg IVPUSH ASDIRECTED PRN PRN Reason: Hypo-perfusion Atropine Sulfate (Atropine 0.1 Mg/Ml) 1 mg IVPUSH ASDIRECTED PRN PRN Reason: Hypo-Perfusion Cefazolin Sodium (Ancef) Confirm Administered Dose 2 gm .ROUTE .STK-MED ONE Stop: 10/23/18 10:07 Dextrose/Water (Dextrose 50% In Water) 50 ml IVPUSH ASDIRECTED PRN PRN Reason: Hypoglycemia Epinephrine HCl (Epinephrine 1:10,000) 1 mg IVPUSH ASDIRECTED PRN PRN Reason: ACLS Guidelines Fentanyl (Sublimaze) Confirm Administered Dose 100 mcg .ROUTE .STK-MED ONE Stop: 10/23/18 08:38 Fentanyl (Sublimaze) 50 mcg IVPUSH Q5M PRN PRN Reason: Pain Cefazolin Sodium/Dextrose 2 gm (/ Premix) 50 mls @ 100 mls/hr IV ONCALL [facility] Ropivacaine 49.25 ml/Ketorolac Tromethamine 30 mg/Epinephrine HCl 0.5 mg/ Clonidine HCl 80 mcg/ Sodium Chloride 100 mls @ 50 mls/sec INJECT ASDIRECTED [facility] Tranexamic Acid 2,000 mg/ (Sodium Chloride) 120 mls @ 600 mls/hr IV ASDIRECTED ONE Stop: 10/23/18 06:11 Last Admin: 10/23/18 14:30 Dose: Not Given Sodium Chloride (Normal Saline) Confirm Administered Dose 0 mls @ as directed .ROUTE .STK-MED ONE Stop: 10/23/18 10:07 Cefazolin Sodium/Dextrose (Ancef) Confirm Administered Dose 100 mls @ as directed .ROUTE .STK-MED ONE Stop: 10/23/18 12:31 Acetaminophen 1,000 mg/ Premix 100 mls @ 400 mls/hr IV Q6H [facility] Stop: 10/24/18 06:14 Last Admin: 10/24/18 05:12 Dose: 400 mls/hr Cefazolin Sodium/Dextrose 2 gm (/ Premix) 50 mls @ 100 mls/hr IV Q8H [facility] Stop: 10/24/18 04:29 Last Admin: 10/24/18 03:41 Dose: 100 mls/hr Ketorolac Tromethamine (Toradol) 30 mg IVPUSH Q6H [facility] Stop: 10/24/18 05:00 Last Admin: 10/24/18 01:39 Dose: 30 mg Labetalol HCl (Normodyne) 5 mg IVPUSH ONETIME [facility]; Protocol Stop: 10/23/18 10:34 Last Admin: 10/23/18 14:30 Dose: Not Given Lidocaine (Xylocaine-Mpf 2%) Confirm Administered Dose 5 ml .ROUTE .STK-MED ONE Stop: 10/23/18 08:42 Meperidine HCl (Demerol) 12.5 mg IVPUSH .ONETIME PRN PRN Reason: Shivering Meperidine HCl (Demerol) Confirm Administered Dose 25 mg .ROUTE .STK-MED ONE Stop: 10/23/18 13:57 Last Admin: 10/23/18 14:30 Dose: Not Given Midazolam HCl (Versed 1 Mg/Ml) Confirm Administered Dose 2 mg .ROUTE .STK-MED ONE Stop: 10/23/18 08:39 Midazolam HCl (Versed 1 Mg/Ml) Confirm Administered Dose 2 mg .ROUTE .STK-MED ONE Stop: 10/23/18 11:58 Morphine Sulfate (Morphine Food Service 30 Mg In 30 Ml) 30 mg IV ASDIRECTED PRN; Protocol PRN Reason: Pain Stop: 10/24/18 06:00 Last Admin: 10/23/18 14:22 Dose: 30 mg Naloxone HCl (Narcan) 0.1 mg IVPUSH ASDIRECTED PRN PRN Reason: Respiratory Depression Oxycodone HCl (Oxycodone) 5 - 10 mg PO Q4H PRN PRN Reason: Pain Stop: 10/24/18 08:00 Last Admin: 10/24/18 03:48 Dose: 5 mg Propofol (Diprivan 20 Ml) Confirm Administered Dose 400 mg .ROUTE .STK-MED ONE Stop: 10/23/18 08:38 Propofol (Diprivan 20 Ml) Confirm Administered Dose 400 mg .ROUTE .STK-MED ONE Stop: 10/23/18 12:43 Tranexamic Acid (Cyklokapron) Confirm Administered Dose 2,000 mg .ROUTE .STK- MED ONE Stop: 10/23/18 09:53 - Exam Wound/Incisions: Healing Well. No: Drainage, Erythema General: Alert, Oriented Cardiovascular: Regular Rate, Regular Rhythm Extremities: Other (exam RLE - at/ehl/gastroc 5/5, dp 2+, sensation intact distally) Physical Findings Comment:: vss, afeb hgb 10.9 - Problem List & Annotations (1) S/P total knee arthroplasty SNOMED Code(s): 2933609159201, 746341720, 6826805574266 Code(s): Z96.659 - PRESENCE OF UNSPECIFIED ARTIFICIAL KNEE JOINT Status: Acute Current Visit: Yes - Problem List Review Problem List Initiated/Reviewed/Updated: Yes - My Orders Last 24 Hours: Active Orders 24 hr Category Date Time Status Ready for Discharge [RC] PER UNIT ROUTINE Care 10/25/18 10:37 Active Medication Orders Al Hydroxide/Mg Hydroxide (Mag-Al Plus) 30 ml PO Q4H PRN PRN Reason: Indigestion Anastrozole (Arimidex) 1 mg PO DAILY [facility] Last Admin: 10/25/18 08:51 Dose: 1 mg Admin: 10/24/18 10:07 Dose: 1 mg Artificial Tears (Refresh Plus 0.5%) 1 each EYEBOTH ASDIRECTED PRN PRN Reason: Dry Eyes Aspirin (Ecotrin) 325 mg PO BID [facility] Last Admin: 10/25/18 08:51 Dose: 325 mg Admin: 10/24/18 20:11 Dose: 325 mg Admin: 10/24/18 08:28 Dose: 325 mg Bisacodyl (Dulcolax) 10 mg RECTAL DAILY PRN PRN Reason: Constipation Celecoxib (Celebrex) 200 mg PO BID [facility] Last Admin: 10/25/18 08:49 Dose: 200 mg Admin: 10/24/18 20:10 Dose: 200 mg Admin: 10/24/18 08:30 Dose: 200 mg Diphenhydramine HCl (Benadryl) 25 - 50 mg PO Q6H PRN PRN Reason: Itching Docusate Sodium (Colace) 100 mg PO BID PRN PRN Reason: Constipation Famotidine (Pepcid) 40 mg IVPUSH ONARRIVE [facility] Last Admin: 10/23/18 10:32 Dose: 40 mg Famotidine (Pepcid) 40 mg PO DAILY [facility] Last Admin: 10/25/18 08:50 Dose: 40 mg Admin: 10/24/18 08:34 Dose: 40 mg HCTZ/Losartan Potassium (Hyzaar 50-12.5 Mg) 1 tab PO DAILY [facility] Last Admin: 10/25/18 08:50 Dose: 1 tab Admin: 10/24/18 08:30 Dose: 1 tab Acetaminophen 1,000 mg/ Premix 100 mls @ 400 mls/hr IV ONARRIVE [facility] Last Admin: 10/23/18 10:32 Dose: 400 mls/hr Lactated Ringer's (Ringers, Lactated) 1,000 mls @ 100 mls/hr IV ASDIRECTED [facility] Last Admin: 10/24/18 01:50 Dose: 100 mls/hr Infusion: 10/24/18 00:30 Dose: 100 mls/hr Admin: 10/23/18 14:30 Dose: 100 mls/hr Infusion: 10/23/18 14:30 Dose: 100 mls/hr Admin: 10/23/18 10:32 Dose: 100 mls/hr Magnesium Oxide (Magnesium Oxide) 400 mg PO BEDTIME [facility] Last Admin: 10/24/18 20:11 Dose: 400 mg Admin: 10/23/18 20:18 Dose: 400 mg Morphine Sulfate (Morphine) 1 - 3 mg IVPUSH Q3H PRN PRN Reason: Pain Last Admin: 10/24/18 15:20 Dose: 2 mg Ondansetron HCl (Zofran) 4 mg IVPUSH Q6H PRN PRN Reason: Nausea/Vomiting Last Admin: 10/23/18 21:06 Dose: 4 mg Oxycodone/Acetaminophen (Percocet 325-5 Mg) 1 - 2 tab PO Q4H PRN PRN Reason: Pain Last Admin: 10/25/18 08:50 Dose: 2 tab Admin: 10/25/18 03:26 Dose: 2 tab Admin: 10/24/18 18:20 Dose: 2 tab Admin: 10/24/18 13:10 Dose: 2 tab Admin: 10/24/18 08:31 Dose: 2 tab [Preservision] 1 Tab 1 each PO BID [facility] Last Admin: 10/25/18 08:57 Dose: Admin: 10/24/18 22:55 Dose: Admin: 10/24/18 08:35 Dose: Admin: 10/23/18 20:20 Dose: Polyethylene Glycol (Miralax) 17 gm PO DAILY [facility] Last Admin: 10/25/18 08:56 Dose: 17 gm Admin: 10/24/18 08:28 Dose: 17 gm Rosuvastatin Calcium (Crestor) 10 mg PO DAILY [facility] Last Admin: 10/25/18 08:49 Dose: 10 mg Admin: 10/24/18 08:29 Dose: 10 mg Scopolamine (Transderm-Scop) 1.5 mg TRDERM ONARRIVE [facility] Last Admin: 10/23/18 10:32 Dose: 1.5 mg Sodium Chloride (Saline Flush) 10 ml FLUSH ASDIRECTED PRN PRN Reason: Keep Vein Open Sodium Chloride (Saline Flush) 2.5 ml FLUSH ASDIRECTED PRN PRN Reason: Keep Vein Open - Assessment Assessment (Free Text/Narrative):: POD#2 R TKA acute posthemorrhagic anemia - Plan Plan (Free Text/Narrative):: dressing changed to aquacel dressing continue pain management, PT until discharge d/ch medications written d/ch instructions done d/ch summary #[id number] <Daniela You R - Last Filed: 10/25/18 11:30> - Patient Data Vitals - Most Recent: Last Vital Signs Temp 98.2 F 10/25/18 11:16 Pulse 74 10/25/18 11:16 Resp 16 10/25/18 11:16 BP 127/60 10/25/18 11:16 Pulse Ox 95 10/25/18 11:16 I&O - Last 24 Hours: Intake & Output 10/24/18 10/25/18 10/25/18 22:59 06:59 14:59 Intake Total 1530 240 Output Total 500 Balance 1030 240 Lab Results Last 24 Hrs: Laboratory Results - last 24 hr 10/25/18 Range/Units 05:32 Hgb 10.9 L (12.0-16.0) g/dL Hct 34.1 L (36.0-46.0) % Med Orders - Current: Current Medications Al Hydroxide/Mg Hydroxide (Mag-Al Plus) 30 ml PO Q4H PRN PRN Reason: Indigestion Anastrozole (Arimidex) 1 mg PO DAILY [facility] Last Admin: 10/25/18 08:51 Dose: 1 mg Artificial Tears (Refresh Plus 0.5%) 1 each EYEBOTH ASDIRECTED PRN PRN Reason: Dry Eyes Aspirin (Ecotrin) 325 mg PO BID [facility] Last Admin: 10/25/18 08:51 Dose: 325 mg Bisacodyl (Dulcolax) 10 mg RECTAL DAILY PRN PRN Reason: Constipation Celecoxib (Celebrex) 200 mg PO BID [facility] Last Admin: 10/25/18 08:49 Dose: 200 mg Diphenhydramine HCl (Benadryl) 25 - 50 mg PO Q6H PRN PRN Reason: Itching Docusate Sodium (Colace) 100 mg PO BID PRN PRN Reason: Constipation Famotidine (Pepcid) 40 mg IVPUSH ONARRIVE [facility] Last Admin: 10/23/18 10:32 Dose: 40 mg Famotidine (Pepcid) 40 mg PO DAILY [facility] Last Admin: 10/25/18 08:50 Dose: 40 mg HCTZ/Losartan Potassium (Hyzaar 50-12.5 Mg) 1 tab PO DAILY [facility] Last Admin: 10/25/18 08:50 Dose: 1 tab Acetaminophen 1,000 mg/ Premix 100 mls @ 400 mls/hr IV ONARRIVE [facility] Last Admin: 10/23/18 10:32 Dose: 400 mls/hr Lactated Ringer's (Ringers, Lactated) 1,000 mls @ 100 mls/hr IV ASDIRECTED [facility] Last Admin: 10/24/18 01:50 Dose: 100 mls/hr Magnesium Oxide (Magnesium Oxide) 400 mg PO BEDTIME [facility] Last Admin: 10/24/18 20:11 Dose: 400 mg Morphine Sulfate (Morphine) 1 - 3 mg IVPUSH Q3H PRN PRN Reason: Pain Last Admin: 10/24/18 15:20 Dose: 2 mg Ondansetron HCl (Zofran) 4 mg IVPUSH Q6H PRN PRN Reason: Nausea/Vomiting Last Admin: 10/23/18 21:06 Dose: 4 mg Oxycodone/Acetaminophen (Percocet 325-5 Mg) 1 - 2 tab PO Q4H PRN PRN Reason: Pain Last Admin: 10/25/18 08:50 Dose: 2 tab [Preservision] 1 Tab 1 each PO BID [facility] Last Admin: 10/25/18 08:57 Dose: Not Given Polyethylene Glycol (Miralax) 17 gm PO DAILY [facility] Last Admin: 10/25/18 08:56 Dose: 17 gm Rosuvastatin Calcium (Crestor) 10 mg PO DAILY [facility] Last Admin: 10/25/18 08:49 Dose: 10 mg Scopolamine (Transderm-Scop) 1.5 mg TRDERM ONARRIVE [facility] Last Admin: 10/23/18 10:32 Dose: 1.5 mg Sodium Chloride (Saline Flush) 10 ml FLUSH ASDIRECTED PRN PRN Reason: Keep Vein Open Sodium Chloride (Saline Flush) 2.5 ml FLUSH ASDIRECTED PRN PRN Reason: Keep Vein Open Discontinued Medications Albuterol (Proventil Neb Soln) 2.5 mg NEB ONETIME PRN PRN Reason: Wheezing Atropine Sulfate (Atropine 0.1 Mg/Ml) 0.5 mg IVPUSH ASDIRECTED PRN PRN Reason: Hypo-perfusion Atropine Sulfate (Atropine 0.1 Mg/Ml) 1 mg IVPUSH ASDIRECTED PRN PRN Reason: Hypo-Perfusion Cefazolin Sodium (Ancef) Confirm Administered Dose 2 gm .ROUTE .STK-MED ONE Stop: 10/23/18 10:07 Dextrose/Water (Dextrose 50% In Water) 50 ml IVPUSH ASDIRECTED PRN PRN Reason: Hypoglycemia Epinephrine HCl (Epinephrine 1:10,000) 1 mg IVPUSH ASDIRECTED PRN PRN Reason: ACLS Guidelines Fentanyl (Sublimaze) Confirm Administered Dose 100 mcg .ROUTE .STK-MED ONE Stop: 10/23/18 08:38 Fentanyl (Sublimaze) 50 mcg IVPUSH Q5M PRN PRN Reason: Pain Cefazolin Sodium/Dextrose 2 gm (/ Premix) 50 mls @ 100 mls/hr IV ONCALL [facility] Ropivacaine 49.25 ml/Ketorolac Tromethamine 30 mg/Epinephrine HCl 0.5 mg/ Clonidine HCl 80 mcg/ Sodium Chloride 100 mls @ 50 mls/sec INJECT ASDIRECTED [facility] Tranexamic Acid 2,000 mg/ (Sodium Chloride) 120 mls @ 600 mls/hr IV ASDIRECTED ONE Stop: 10/23/18 06:11 Last Admin: 10/23/18 14:30 Dose: Not Given Sodium Chloride (Normal Saline) Confirm Administered Dose 0 mls @ as directed .ROUTE .STK-MED ONE Stop: 10/23/18 10:07 Cefazolin Sodium/Dextrose (Ancef) Confirm Administered Dose 100 mls @ as directed .ROUTE .STK-MED ONE Stop: 10/23/18 12:31 Acetaminophen 1,000 mg/ Premix 100 mls @ 400 mls/hr IV Q6H [facility] Stop: 10/24/18 06:14 Last Admin: 10/24/18 05:12 Dose: 400 mls/hr Cefazolin Sodium/Dextrose 2 gm (/ Premix) 50 mls @ 100 mls/hr IV Q8H [facility] Stop: 10/24/18 04:29 Last Admin: 10/24/18 03:41 Dose: 100 mls/hr Ketorolac Tromethamine (Toradol) 30 mg IVPUSH Q6H [facility] Stop: 10/24/18 05:00 Last Admin: 10/24/18 01:39 Dose: 30 mg Labetalol HCl (Normodyne) 5 mg IVPUSH ONETIME STA; Protocol Stop: 10/23/18 10:34 Last Admin: 10/23/18 14:30 Dose: Not Given Lidocaine (Xylocaine-Mpf 2%) Confirm Administered Dose 5 ml .ROUTE .STK-MED ONE Stop: 10/23/18 08:42 Meperidine HCl (Demerol) 12.5 mg IVPUSH .ONETIME PRN PRN Reason: Shivering Meperidine HCl (Demerol) Confirm Administered Dose 25 mg .ROUTE .STK-MED ONE Stop: 10/23/18 13:57 Last Admin: 10/23/18 14:30 Dose: Not Given Midazolam HCl (Versed 1 Mg/Ml) Confirm Administered Dose 2 mg .ROUTE .STK-MED ONE Stop: 10/23/18 08:39 Midazolam HCl (Versed 1 Mg/Ml) Confirm Administered Dose 2 mg .ROUTE .STK-MED ONE Stop: 10/23/18 11:58 Morphine Sulfate (Morphine Food Service 30 Mg In 30 Ml) 30 mg IV ASDIRECTED PRN; Protocol PRN Reason: Pain Stop: 10/24/18 06:00 Last Admin: 10/23/18 14:22 Dose: 30 mg Naloxone HCl (Narcan) 0.1 mg IVPUSH ASDIRECTED PRN PRN Reason: Respiratory Depression Oxycodone HCl (Oxycodone) 5 - 10 mg PO Q4H PRN PRN Reason: Pain Stop: 10/24/18 08:00 Last Admin: 10/24/18 03:48 Dose: 5 mg Propofol (Diprivan 20 Ml) Confirm Administered Dose 400 mg .ROUTE .STK-MED ONE Stop: 10/23/18 08:38 Propofol (Diprivan 20 Ml) Confirm Administered Dose 400 mg .ROUTE .STK-MED ONE Stop: 10/23/18 12:43 Tranexamic Acid (Cyklokapron) Confirm Administered Dose 2,000 mg .ROUTE .STK- MED ONE Stop: 10/23/18 09:53 - My Orders Last 24 Hours: Active Orders 24 hr Category Date Time Status Ready for Discharge [RC] PER UNIT ROUTINE Care 10/25/18 10:37 Active Medication Orders Al Hydroxide/Mg Hydroxide (Mag-Al Plus) 30 ml PO Q4H PRN PRN Reason: Indigestion Anastrozole (Arimidex) 1 mg PO DAILY [facility] Last Admin: 10/25/18 08:51 Dose: 1 mg Admin: 10/24/18 10:07 Dose: 1 mg Artificial Tears (Refresh Plus 0.5%) 1 each EYEBOTH ASDIRECTED PRN PRN Reason: Dry Eyes Aspirin (Ecotrin) 325 mg PO BID [facility] Last Admin: 10/25/18 08:51 Dose: 325 mg Admin: 10/24/18 20:11 Dose: 325 mg Admin: 10/24/18 08:28 Dose: 325 mg Bisacodyl (Dulcolax) 10 mg RECTAL DAILY PRN PRN Reason: Constipation Celecoxib (Celebrex) 200 mg PO BID [facility] Last Admin: 10/25/18 08:49 Dose: 200 mg Admin: 10/24/18 20:10 Dose: 200 mg Admin: 10/24/18 08:30 Dose: 200 mg Diphenhydramine HCl (Benadryl) 25 - 50 mg PO Q6H PRN PRN Reason: Itching Docusate Sodium (Colace) 100 mg PO BID PRN PRN Reason: Constipation Famotidine (Pepcid) 40 mg IVPUSH ONARRIVE [facility] Last Admin: 10/23/18 10:32 Dose: 40 mg Famotidine (Pepcid) 40 mg PO DAILY [facility] Last Admin: 10/25/18 08:50 Dose: 40 mg Admin: 10/24/18 08:34 Dose: 40 mg HCTZ/Losartan Potassium (Hyzaar 50-12.5 Mg) 1 tab PO DAILY [facility] Last Admin: 10/25/18 08:50 Dose: 1 tab Admin: 10/24/18 08:30 Dose: 1 tab Acetaminophen 1,000 mg/ Premix 100 mls @ 400 mls/hr IV ONARRIVE [facility] Last Admin: 10/23/18 10:32 Dose: 400 mls/hr Lactated Ringer's (Ringers, Lactated) 1,000 mls @ 100 mls/hr IV ASDIRECTED [facility] Last Admin: 10/24/18 01:50 Dose: 100 mls/hr Infusion: 10/24/18 00:30 Dose: 100 mls/hr Admin: 10/23/18 14:30 Dose: 100 mls/hr Infusion: 10/23/18 14:30 Dose: 100 mls/hr Admin: 10/23/18 10:32 Dose: 100 mls/hr Magnesium Oxide (Magnesium Oxide) 400 mg PO BEDTIME [facility] Last Admin: 10/24/18 20:11 Dose: 400 mg Admin: 10/23/18 20:18 Dose: 400 mg Morphine Sulfate (Morphine) 1 - 3 mg IVPUSH Q3H PRN PRN Reason: Pain Last Admin: 10/24/18 15:20 Dose: 2 mg Ondansetron HCl (Zofran) 4 mg IVPUSH Q6H PRN PRN Reason: Nausea/Vomiting Last Admin: 10/23/18 21:06 Dose: 4 mg Oxycodone/Acetaminophen (Percocet 325-5 Mg) 1 - 2 tab PO Q4H PRN PRN Reason: Pain Last Admin: 10/25/18 08:50 Dose: 2 tab Admin: 10/25/18 03:26 Dose: 2 tab Admin: 10/24/18 18:20 Dose: 2 tab Admin: 10/24/18 13:10 Dose: 2 tab Admin: 10/24/18 08:31 Dose: 2 tab [Preservision] 1 Tab 1 each PO BID [facility] Last Admin: 10/25/18 08:57 Dose: Admin: 10/24/18 22:55 Dose: Admin: 10/24/18 08:35 Dose: Admin: 10/23/18 20:20 Dose: Polyethylene Glycol (Miralax) 17 gm PO DAILY [facility] Last Admin: 10/25/18 08:56 Dose: 17 gm Admin: 10/24/18 08:28 Dose: 17 gm Rosuvastatin Calcium (Crestor) 10 mg PO DAILY [facility] Last Admin: 10/25/18 08:49 Dose: 10 mg Admin: 10/24/18 08:29 Dose: 10 mg Scopolamine (Transderm-Scop) 1.5 mg TRDERM ONARRIVE [facility] Last Admin: 10/23/18 10:32 Dose: 1.5 mg Sodium Chloride (Saline Flush) 10 ml FLUSH ASDIRECTED PRN PRN Reason: Keep Vein Open Sodium Chloride (Saline Flush) 2.5 ml FLUSH ASDIRECTED PRN PRN Reason: Keep Vein Open - Plan Plan (Free Text/Narrative):: 1130 Patient seen and examined. Agree with above note. Patient doing much better today. Pain well controlled with PO meds. Progressing with PT. Hgb stable. Plan to discharge home later today after PT. continue with outpatient PT. Patient agrees with plan. timothy
[2018-10-25 11:17] VITALS: BP 127/60
--- NOTE | 2018-10-26 08:34 | DISCH ---
DATE OF DISCHARGE: 10/25/2018 PRIMARY CARE PHYSICIAN: Ortiz Cordova M.D. DISCHARGE DIAGNOSIS: Degenerative joint disease, right knee, tricompartmental. OTHER MEDICAL DIAGNOSES: 1. Macular degeneration. 2. Depression. 3. Hypertension. 4. History of breast cancer. DISCHARGE DIAGNOSES: 1. Degenerative joint disease, right knee, tricompartmental. 2. Macular degeneration. 3. Depression. 4. Hypertension. 5. History of breast cancer. 6. Acute posthemorrhagic anemia. BRIEF HISTORY: Laura is a 68-year-old female, who has had progressive complaints of right knee pain. She has tried and failed conservative treatment. At that time, surgical treatment was recommended. On October 23, 2018, the patient underwent a right total knee arthroplasty done by Dr. Daniela You. This was done under spinal anesthesia with sedation. Estimated blood loss was 50 mL. Tourniquet time was 36 minutes. There were no known complications. Upon completion of the procedure, the patient transferred to the PACU and subsequently to [facility] for postoperative care. HOSPITAL COURSE: Postoperatively, the patient did well. She was given 2 doses of antibiotics postoperatively for a total of 24 hours of antibiotic coverage. 325 mg aspirin by mouth twice daily was started on postoperative day #1 for DVT prophylaxis. Her pain was controlled with a combination of oral and IV pain medication. Physical therapy followed her through her hospital stay. She has been ambulating well with the assist of a front wheeled walker. Her vital signs have been stable. She has been afebrile. Her hemoglobin on the morning of October 25 was 10.9. At this time, the patient is doing well. She is tolerating oral intake. Her pain is controlled with oral pain medications only. She is ambulating well with a wheeled walker. She feels comfortable with discharge to home. DISCHARGE MEDICATIONS: 1. Percocet 5/325. 2. Celebrex 200 mg. 3. Colace 100 mg. 4. MiraLAX. 5. Aspirin 325 mg. DISCHARGE INSTRUCTIONS: After complete discharge instructions, please refer to Dr. You's postoperative total knee arthroplasty patient instructions. For complete medication reconciliation, please refer back to the patient's EHR. Should she have questions or concerns prior to followup, she has been advised to contact the clinic. KENAN SYED /[id number]
== END 2018-10-25 14:30 | disposition home or self-care (01) | DRG 470 ==
LOC: MW.MS 09:33 → EDSTATUS 14:00
PROVIDERS: ADMIT Orthopaedic Surgery; ATTEND Orthopaedic Surgery
PROC: 0SRC0J9 Replacement of Right Knee Joint with Synthetic Substitute, Cemented, Open Approach (ICD-10-PCS; principal; 2018-10-23)
DX: M17.11 Unilateral primary osteoarthritis, right knee (principal); D62 Acute posthemorrhagic anemia; H35.30 Unspecified macular degeneration; I10 Essential (primary) hypertension; G47.33 Obstructive sleep apnea (adult) (pediatric); Z99.89 Dependence on other enabling machines and devices; R42 Dizziness and giddiness; Z85.3 Personal history of malignant neoplasm of breast; F32.9 Major depressive disorder, single episode, unspecified; Z90.710 Acquired absence of both cervix and uterus
CPT/HCPCS: 36415; 51701; 73560-26-RT; 73560-RT; 85014; 85018; 86850; 86900; 86901; 97110-GP; 97116-GP; 97161-GP; 97530-GP; A9270-GY; C1713; C1776; J0131; J0171; J0690; J0735; J1885; J2001; J2250; J2270; J2274; J2405; J2704; J2795; J3010; J3490; J7050; J7120

== ENCOUNTER 2018-11-04 02:50 | Emergency (ER) | payer MEDICARE, BC ==
[2018-11-04] MEDS ORDERED: Tetracaine HCl/PF 0.5% 4 ML Bottle EYEBOTH STA (04:15)
--- NOTE | 2018-11-04 04:15 | EDM.PDOC ---
ED HPI GENERAL MEDICAL PROBLEM - General Stated Complaint: EAR HURTS Time Seen by Provider: 11/04/18 04:14 Source of Information: Reports: Patient - History of Present Illness INITIAL COMMENTS - FREE TEXT/NARRATIVE: HISTORY AND PHYSICAL: History of present illness: [Patient presents with left ear pain 8 out of 10 however this is resolved after an extended wait in the waiting room She has had pain off and on for the last few days] Review of systems: As per history of present illness and below otherwise all systems reviewed and negative. Past medical history: As per history of present illness and as reviewed below otherwise noncontributory. Surgical history: As per history of present illness and as reviewed below otherwise noncontributory. Social history: No reported history of drug or alcohol abuse. Family history: As per history of present illness and as reviewed below otherwise noncontributory. Physical exam: HEENT: Atraumatic, normocephalic, pupils reactive, negative for conjunctival pallor or scleral icterus, mucous membranes moist, throat clear, neck supple, nontender, trachea midline. Left tympanic membrane is reddened with slight bulge right disc clear. Tenderness Lungs: Clear to auscultation, breath sounds equal bilaterally, chest nontender. Heart: S1S2, regular, negative for clicks, rubs, or JVD. Abdomen: Soft, nondistended, nontender. Negative for masses or hepatosplenomegaly. Negative for costovertebral tenderness. Pelvis: Stable nontender. Genitourinary: Deferred. Rectal: Deferred. Extremities: Atraumatic, negative for cords or calf pain. Neurovascular unremarkable. Neuro: Awake, alert, oriented. Cranial nerves II through XII unremarkable. Cerebellum unremarkable. Motor and sensory unremarkable throughout. Exam nonfocal. Diagnostics: [Clinical ] Therapeutics: [Augmentin ] Impression: [LOM ] Definitive disposition and diagnosis as appropriate pending reevaluation and review of above. - Related Data Allergies Allergy/AdvReac Type Severity Reaction Status Date / Time No Known Allergies Allergy Verified 10/17/18 11:50 Home Meds: Home Meds Losartan/Hydrochlorothiazide [Losartan-HCTZ 50-12.5 MG] 1 each PO DAILY [History] Anastrozole [Arimidex] 1 mg PO DAILY 10/17/18 [History] Calcium Carb & Citrate/Vit D3 [Calcium + D3 ER Tablet] 1 tab PO BID 10/17/18 [ History] Carboxymethyl/Glycerin/Poly80 [Refresh Optive Advanced Drops] 1 drop EYEBOTH ASDIRECTED PRN 10/17/18 [History] Estrogens, Conjugated [Premarin Vaginal Crm] 1 applic TOP ASDIRECTED 10/17/18 [ History] Gluc HCl/Csa/José Antonio Hy/Hyalur Ac [Glucosamine Chondroitin] 1 tab PO BID 10/17/18 [ History] Magnesium Oxide 1 tab PO BEDTIME 10/17/18 [History] [place]-3/DHA/Epa/Fish Oil [Fish Oil 1,000 mg Softgel] 1 mg PO BID 10/17/18 [ History] Rosuvastatin [Crestor] 10 mg PO DAILY 10/17/18 [History] Vit A/Vit C/Vit E/Zinc/Copper [Preservision] 1 tab PO BID 10/17/18 [History] Acetaminophen/oxyCODONE [Percocet 325-5 MG] 1 - 2 tab PO Q4H PRN #60 tablet [Rx] Aspirin [Ecotrin] 325 mg PO BID #60 tab.ec 10/25/18 [Rx] Celecoxib [CeleBREX] 200 mg PO DAILY #30 cap 10/25/18 [Rx] Docusate Sodium [Colace] 100 mg PO BID PRN #60 cap 10/25/18 [Rx] Polyethylene Glycol 3350 [MiraLAX] 17 gm PO DAILY #30 packet 10/25/18 [Rx] Past Medical History - Past Health History Medical/Surgical History: Denies Medical/Surgical History HEENT History: Reports: Macular Degeneration, Other (See Below) Other HEENT History: wears glasses Cardiovascular History: Reports: High Cholesterol, Hypertension Other Cardiovascular History: ekg from 10.06.2018: sr with first degree AV block and incomplete right bbb, marked left axis deviation, unchanged from previous ekgs per primary care doctor. Respiratory History: Reports: Sleep Apnea Other Respiratory History: uses CPAP. She has postnasal drip in the mornings which is from her CPAP. 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: Musculoskeletal History: Reports: Back Pain, Chronic, Osteoarthritis Other Musculoskeletal History: spinal stenosis Neurological History: Reports: Concussion, Head Trauma Other Neuro History: small brain bleed due to fall in Mar 2017 Psychiatric History: Reports: Depression, Panic Attack Endocrine/Metabolic History: Reports: Obesity/BMI 30+ Hematologic History: Reports: None Immunologic History: Reports: None Oncologic (Cancer) History: Reports: Breast Dermatologic History: Reports: None - Infectious Disease History Infectious Disease History: Reports: Chicken Pox, Mumps - Past Surgical History Head Surgeries/Procedures: Reports: None HEENT Surgical History: Reports: Cataract Surgery Cardiovascular Surgical History: Reports: None Respiratory Surgical History: Reports: None GI Surgical History: Reports: Colonoscopy Female Surgical History: Reports: Breast Biopsy, Hysterectomy, Mastectomy, Oophorectomy Other Female Surgeries/Procedures: left modified mastectomy Endocrine Surgical History: Reports: None Neurological Surgical History: Reports: None Musculoskeletal Surgical History: Reports: Carpal Tunnel, Knee Replacement Oncologic Surgical History: Reports: Biopsy of Breast, Mastectomy Dermatological Surgical History: Reports: None Social & Family History - Family History Family Medical History: Noncontributory - Caffeine Use Caffeine Use: Reports: Coffee ED ROS GENERAL - Review of Systems Review Of Systems: See Below ED EXAM, GENERAL - Physical Exam Exam: See Below Course - Orders/Labs/Meds Meds: Medications Discontinued Medications Generic Name Dose Route Start Last Admin Trade Name Freq PRN Reason Stop Dose Admin Tetracaine HCl 1 ml 11/04/18 04:15 Tetracaine 0.5% Steri-Unit Yasmin EYEBOTH 11/04/18 04:16 NOW STA Departure - Departure Time of Disposition: 04:20 Disposition: Home, Self-Care 01 Condition: Good Clinical Impression: Otitis media - Discharge Information Referrals: PCP,None [Primary Care Provider] - Additional Instructions: The following information is given to patients seen in the emergency department who are being discharged to home. This information is to outline your options for follow-up care. We provide all patients seen in our emergency department with a follow-up referral. The need for follow-up, as well as the timing and circumstances, are variable depending upon the specifics of your emergency department visit. If you don't have a primary care physician on staff, we will provide you with a referral. We always advise you to contact your personal physician following an emergency department visit to inform them of the circumstance of the visit and for follow-up with them and/or the need for any referrals to a consulting specialist. The emergency department will also refer you to a specialist when appropriate. This referral assures that you have the opportunity for follow-up care with a specialist. All of these measure are taken in an effort to provide you with optimal care, which includes your follow-up. Under all circumstances we always encourage you to contact your private physician who remains a resource for coordinating your care. When calling for follow-up care, please make the office aware that this follow-up is from your recent emergency room visit. If for any reason you are refused follow-up, please contact the [facility] emergency department at and asked to speak to the emergency department charge nurse.
[2018-11-04 05:10] VITALS: BP 158/79
== END 2018-11-04 04:45 | disposition home or self-care (01) ==
LOC: MW.ED 02:50
DX: H66.92 Otitis media, unspecified, left ear (principal); E78.00 Pure hypercholesterolemia, unspecified; I10 Essential (primary) hypertension; Z79.899 Other long term (current) drug therapy
CPT/HCPCS: 99282

== ENCOUNTER 2019-02-06 13:18 | Emergency (ER) | payer MEDICARE, BC ==
--- NOTE | 2019-02-06 13:28 | EDM.PDOC ---
ED HPI GENERAL MEDICAL PROBLEM - General Chief Complaint: Head Injury Time Seen by Provider: 02/06/19 13:27 Source of Information: Reports: Patient History Limitations: Reports: No Limitations - History of Present Illness INITIAL COMMENTS - FREE TEXT/NARRATIVE: History of present illness: []Patient had a mechanical fall prior to arrival tripping over a threshold in a doorway. Landing in a flower bed. She has a contusion on her left forehead and face, abrasion to her right flank and a contusion on her right knee. She had a knee replacement earlier this year of the right knee states she was able to walk on it after being assisted back up. She denies any hip neck chest or abdominal pain Review of systems: As per history of present illness and below otherwise all systems reviewed and negative. Past medical history: As per history of present illness and as reviewed below otherwise noncontributory. Surgical history: As per history of present illness and as reviewed below otherwise noncontributory. Social history: No reported history of drug or alcohol abuse. Family history: As per history of present illness and as reviewed below otherwise noncontributory. Physical exam: General: Well developed, well nourished in NAD HEENT: Contusion/hematoma on left forehead and lateral temporal area, normocephalic, pupils reactive, negative for conjunctival pallor or scleral icterus, mucous membranes moist, throat clear, neck supple, nontender, trachea midline. Lungs: Clear to auscultation, breath sounds equal bilaterally, chest nontender. Heart: S1S2, regular, negative for clicks, rubs, or JVD. Abdomen: NABS, Soft, nondistended, nontender. Negative for masses or hepatosplenomegaly. Negative for costovertebral tenderness. Positive abrasion over right flank Pelvis: Stable nontender. Genitourinary: Deferred. Rectal: Deferred. Extremities: 2 cm x 2 cm contusion over right anterior knee as well as a well- healed vertical scar from previous knee replacement, no joint effusion for range of motion without instability, negative for cords or calf pain. Neurovascular unremarkable. Neuro: Awake, alert, oriented. Cranial nerves II through XII unremarkable. Cerebellum unremarkable. Motor and sensory unremarkable throughout. Exam nonfocal. Skin:warm and dry Diagnostics: CT head, UA Therapeutics: Tramadol ED Course: Stable Impression: Forehead hematoma, posterior scalp hematoma Prescriptions: None Plan: Take meds as directed, follow up with your primary care physician, return to ER if symptoms worsen or change. Definitive disposition and diagnosis as appropriate pending reevaluation and review of above. left head Pain Score (Numeric/FACES): 4 - Related Data Allergies Allergy/AdvReac Type Severity Reaction Status Date / Time No Known Allergies Allergy Verified 02/06/19 13:31 Home Meds: Home Meds Losartan/Hydrochlorothiazide [Losartan-HCTZ 50-12.5 MG] 1 each PO DAILY [History] Calcium Carb & Citrate/Vit D3 [Calcium + D3 ER Tablet] 1 tab PO BID 10/17/18 [ History] Carboxymethyl/Glycerin/Poly80 [Refresh Optive Advanced Drops] 1 drop EYEBOTH ASDIRECTED PRN 10/17/18 [History] Gluc HCl/Csa/José Antonio Hy/Hyalur Ac [Glucosamine Chondroitin] 1 tab PO BID 10/17/18 [ History] Rosuvastatin [Crestor] 10 mg PO DAILY 10/17/18 [History] Vit A/Vit C/Vit E/Zinc/Copper [Preservision] 1 tab PO BID 10/17/18 [History] Polyethylene Glycol 3350 [MiraLAX] 17 gm PO DAILY #30 packet 10/25/18 [Rx] Fish Oil/[place]-3 Fatty Acids [Fish Oil 1,000 MG] 100 mg PO BID 02/06/19 [History ] Fluticasone Propionate [Flonase] 1 dose INH ASDIRECTED 02/06/19 [History] Ibuprofen 400 mg PO Q4HR 02/06/19 [History] Sertraline [Zoloft] 100 mg PO DAILY 02/06/19 [History] Past Medical History - Past Health History Medical/Surgical History: Denies Medical/Surgical History HEENT History: Reports: Cataract, Macular Degeneration, Other (See Below) Other HEENT History: wears glasses Cardiovascular History: Reports: High Cholesterol, Hypertension Other Cardiovascular History: ekg from 10.06.2018: sr with first degree AV block and incomplete right bbb, marked left axis deviation, unchanged from previous ekgs per primary care doctor. Respiratory History: Reports: Sleep Apnea Other Respiratory History: uses CPAP. She has postnasal drip in the mornings which is from her CPAP. 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: Musculoskeletal History: Reports: Back Pain, Chronic, Osteoarthritis Other Musculoskeletal History: spinal stenosis, bursitis of L hip Neurological History: Reports: Concussion, Head Trauma Other Neuro History: small brain bleed due to fall in Mar 2017 Psychiatric History: Reports: Depression, Panic Attack Endocrine/Metabolic History: Reports: Obesity/BMI 30+ Hematologic History: Reports: None Immunologic History: Reports: None Oncologic (Cancer) History: Reports: Breast Dermatologic History: Reports: None - Infectious Disease History Infectious Disease History: Reports: Chicken Pox, Mumps - Past Surgical History Head Surgeries/Procedures: Reports: None HEENT Surgical History: Reports: Cataract Surgery Cardiovascular Surgical History: Reports: None Respiratory Surgical History: Reports: None GI Surgical History: Reports: Colonoscopy Female Surgical History: Reports: Breast Biopsy, Hysterectomy, Mastectomy, Oophorectomy Other Female Surgeries/Procedures: left modified mastectomy Endocrine Surgical History: Reports: None Neurological Surgical History: Reports: None Musculoskeletal Surgical History: Reports: Carpal Tunnel, Knee Replacement Oncologic Surgical History: Reports: Biopsy of Breast, Mastectomy Dermatological Surgical History: Reports: None Social & Family History - Family History Family Medical History: Noncontributory - Caffeine Use Caffeine Use: Reports: Soda ED ROS GENERAL - Review of Systems Review Of Systems: See Below ED EXAM, HEAD INJURY - Physical Exam Exam: See Below (See history of present illness) Course - Vital Signs Last Recorded V/S: Last Vital Signs Temp 97.2 F 02/06/19 13:29 Pulse 89 02/06/19 13:29 Resp 18 02/06/19 13:29 BP 179/91 H 02/06/19 13:29 Pulse Ox 95 02/06/19 13:29 - Orders/Labs/Meds Orders: Active Orders 24 hr Category Date Time Status CULTURE URINE [RM] Routine Lab 02/06/19 14:00 Received Labs: Laboratory Tests 02/06/19 Range/Units 14:00 Urine Color YELLOW Urine Appearance CLEAR Urine pH 5.5 (5.0-8.0) Ur Specific [place] 1.025 (1.001-1.035) Urine Protein NEGATIVE (NEGATIVE) mg/dL Urine Glucose (UA) NEGATIVE (NEGATIVE) mg/dL Urine Ketones NEGATIVE (NEGATIVE) mg/dL Urine Occult Blood NEGATIVE (NEGATIVE) Urine Nitrite NEGATIVE (NEGATIVE) Urine Bilirubin NEGATIVE (NEGATIVE) Urine Urobilinogen 0.2 (<2.0) EU/dL Ur Leukocyte Esterase MODERATE H (NEGATIVE) Urine RBC 0-2 (0-2/HPF) Urine WBC 3-4 (0-5/HPF) Ur Epithelial Cells FEW (NONE-FEW) Urine Bacteria FEW (NEGATIVE) Urine Mucus FEW (NONE-MOD) Meds: Medications Discontinued Medications Generic Name Dose Route Start Last Admin Trade Name [place] PRN Reason Stop Dose Admin Tramadol HCl 50 mg 02/06/19 14:00 02/06/19 14:13 Ultram PO 02/06/19 14:01 50 mg ONETIME ONE Administration Departure - Departure Time of Disposition: 16:05 Disposition: Home, Self-Care 01 Condition: Good, Fair Clinical Impression: Scalp hematoma Qualifiers: Encounter type: initial encounter Qualified Code(s): S00.03XA - Contusion of scalp, initial encounter Traumatic hematoma of forehead Qualifiers: Encounter type: initial encounter Qualified Code(s): S00.83XA - Contusion of other part of head, initial encounter - Discharge Information *PRESCRIPTION DRUG MONITORING PROGRAM REVIEWED*: No *COPY OF PRESCRIPTION DRUG MONITORING REPORT IN PATIENT MEME: No Referrals: PCP,None [Primary Care Provider] - Forms: ED Department Discharge Additional Instructions: The following information is given to patients seen in the emergency department who are being discharged to home. This information is to outline your options for follow-up care. We provide all patients seen in our emergency department with a follow-up referral. The need for follow-up, as well as the timing and circumstances, are variable depending upon the specifics of your emergency department visit. If you don't have a primary care physician on staff, we will provide you with a referral. We always advise you to contact your personal physician following an emergency department visit to inform them of the circumstance of the visit and for follow-up with them and/or the need for any referrals to a consulting specialist. The emergency department will also refer you to a specialist when appropriate. This referral assures that you have the opportunity for follow-up care with a specialist. All of these measure are taken in an effort to provide you with optimal care, which includes your follow-up. Under all circumstances we always encourage you to contact your private physician who remains a resource for coordinating your care. When calling for follow-up care, please make the office aware that this follow-up is from your recent emergency room visit. If for any reason you are refused follow-up, please contact the [facility] Emergency Department at and asked to speak to the emergency department charge nurse. Take meds as directed, follow up with your primary care physician, return to ER if symptoms worsen or change. [facility] [address] [place] [id number] - My Orders Last 24 Hours: My Active Orders 02/06/19 14:00 CULTURE URINE [RM] Routine - Assessment/Plan Last 24 Hours: My Active Orders 02/06/19 14:00 CULTURE URINE [RM] Routine
[2019-02-06] MEDS ORDERED: traMADol 50 MG Tab PO ONE (14:00)
--- NOTE | 2019-02-06 16:01 | CT ---
INDICATION: Fall. Pain TECHNIQUE: CT head without contrast. COMPARISON: 03/16/2017 FINDINGS: There is age-related cortical atrophy. The ventricles are within normal limits for the patient`s age. There is no mass effect or midline shift. White matter hypodensities are suggestive of mild chronic small vessel ischemic changes. There is no loss of bishop-white differentiation. There is no evidence of a gross acute intracranial hemorrhage. No acute calvarial fracture is seen. There is a left frontal scalp hematoma and mild posterior right parietal scalp swelling. The visualized paranasal sinuses and mastoid air cells are clear. The visualized orbits are stable. IMPRESSION: No evidence of an acute intracranial hemorrhage, mass effect or loss of bishop-white differentiation. A left frontal scalp hematoma and posterior right parietal scalp swelling. Dictated by Toby Dickerson MD @ 02/06/2019 3:59:00 PM Please note that all CT scans at this facility use dose modulation, iterative reconstruction, and/or weight-based dosing when appropriate to reduce radiation dose to as low as reasonably achievable. Dictated by: Toby Dickerson MD @ 02/06/2019 15:59:07 (Electronically Signed)
[2019-02-06 16:35] VITALS: BP 172/85; PULSE 75
== END 2019-02-06 16:11 | disposition home or self-care (01) ==
LOC: MW.ED 13:18
DX: S00.03XA Contusion of scalp, initial encounter (principal); S00.83XA Contusion of other part of head, initial encounter; S80.01XA Contusion of right knee, initial encounter; E78.00 Pure hypercholesterolemia, unspecified; I10 Essential (primary) hypertension; M19.90 Unspecified osteoarthritis, unspecified site; F32.9 Major depressive disorder, single episode, unspecified; Z79.899 Other long term (current) drug therapy; W01.0XXA Fall on same level from slipping, tripping and stumbling without subsequent striking against object, initial encounter
CPT/HCPCS: 70450; 81001; 87086; 99284; A9270; 99283

== ENCOUNTER 2020-02-08 08:21 | Day surgery (SDC) | payer MEDICARE, BC ==
[~2020-02-08 08:21] MED LIST changes: -Acetaminophen 1,000 MG in Premix Bag 1 BAG IV SCH; -Famotidine 20 MG/2 ML SDV IVPUSH SCH; +Lactated Ringers 1,000 ML IV SCH; -Lidocaine 2% 5 ML SDV ONE; -Midazolam 1 MG/ML 2 ML SDV ONE; -Propofol 200 MG/20 ML SDV ONE; -Ropivacaine 49.25 ML, Ketorolac 30 MG, EPINEPHrine 0.5 MG, cloNIDine 80 MCG in Sodium C... INJECT SCH; -Scopolamine 1.5 MG Transdermal Patch TRDERM SCH; -Tranexamic Acid 2,000 MG in Sodium Chloride 0.9% 100 ML IV ONE; -ceFAZolin 2 GM in Premix Bag 1 BAG IV SCH; +cefOXitin 2 GM in Premix Bag 1 BAG IV ONE; -fentaNYL 100 MCG/2 ML SDV ONE
--- NOTE | 2020-02-08 09:05 | PCM.PREANE ---
Preanesthetic Assessment - Anesthesia/Transfusion/Family Hx Anesthesia History: Prior Anesthesia Without Reaction Other Type of Anesthesia Reaction Comment: son has problem waking up after surgery Family History of Anesthesia Reaction: No Transfusion History: No Prior Transfusion(s) - Review of Systems General: No Symptoms Pulmonary: No Symptoms Cardiovascular: No Symptoms Gastrointestinal: No Symptoms Neurological: No Symptoms Other: Reports: None - Physical Assessment NPO Status Date: 02/07/20 Height: 5 ft 8 in Weight: 99.79 kg ASA Class: 2 Mental Status: Alert & Oriented x3 Airway Class: Mallampati = 2 Dentition: Reports: Normal Dentition ROM/Head Extension: Full Lungs: Clear to Auscultation, Normal Respiratory Effort Cardiovascular: Regular Rate, Regular Rhythm - Allergies Allergies/Adverse Reactions: Allergies Allergy/AdvReac Type Severity Reaction Status Date / Time adhesive tape Allergy Blisters Verified 02/04/20 10:39 - Blood Blood Available: No - Anesthesia Plan Pre-Op Medication Ordered: None - Acknowledgements Anesthesia Type Planned: General Anesthesia Pt an Appropriate Candidate for the Planned Anesthesia: Yes Alternatives and Risks of Anesthesia Discussed w Pt/Guardian: Yes Pt/Guardian Understands and Agrees with Anesthesia Plan: Yes Additional Comments: pmh: anx, chr pain, htn, LVH PLAN: tiva PreAnesthesia Questionnaire - Past Health History Medical/Surgical History: Denies Medical/Surgical History HEENT History: Reports: Cataract, Macular Degeneration, Other (See Below) Other HEENT History: wears glasses Cardiovascular History: Reports: High Cholesterol, Hypertension, Other (See Below) Other Cardiovascular History: enlarged left ventrial Respiratory History: Reports: Sleep Apnea Other Respiratory History: uses CPAP. 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: Musculoskeletal History: Reports: Back Pain, Chronic, Osteoarthritis Other Musculoskeletal History: spinal stenosis, Neurological History: Reports: Concussion, Head Trauma Other Neuro History: small brain bleed due to fall in Mar 2017 Psychiatric History: Reports: Anxiety, Depression, Panic Attack, PTSD Endocrine/Metabolic History: Reports: Obesity/BMI 30+ Hematologic History: Reports: None Immunologic History: Reports: None Oncologic (Cancer) History: Reports: Breast Dermatologic History: Reports: None - Infectious Disease History Infectious Disease History: Reports: Chicken Pox, Mumps - Past Surgical History Head Surgeries/Procedures: Reports: None HEENT Surgical History: Reports: Cataract Surgery Cardiovascular Surgical History: Reports: None Respiratory Surgical History: Reports: None GI Surgical History: Reports: Colonoscopy Female Surgical History: Reports: Breast Biopsy, Hysterectomy, Mastectomy, Salpingo-Oophorectomy Other Female Surgeries/Procedures: left modified mastectomy Endocrine Surgical History: Reports: None Neurological Surgical History: Reports: None Musculoskeletal Surgical History: Reports: Carpal Tunnel, Knee Replacement Other Musculoskeletal Surgeries/Procedures:: right TKA, [facility] Oncologic Surgical History: Reports: Biopsy of Breast, Mastectomy Dermatological Surgical History: Reports: None - SUBSTANCE USE Smoking Status *Q: Never Smoker Recreational Drug Use History: No - HOME MEDS Home Medications: Home Meds Calcium Carb, Citrate/Vit D3 [Calcium + D3 ER Tablet] 1 tab PO BID 10/17/18 [History] Glucosam/Chond/Collagen/Hyalur [Glucosamine Chondroitin] 1 tab PO BID 10/17/18 [History] Rosuvastatin [Crestor] 10 mg PO DAILY 10/17/18 [History] Vit A/Vit C/Vit E/Zinc/Copper [Preservision] 1 - 2 tab PO BID 10/17/18 [History] Fish Oil/[place]-3 Fatty Acids [Fish Oil 1,000 MG] 1,000 mg PO DAILY 02/06/19 [History] Fluticasone Propionate [Flonase] 1 dose INH DAILY 02/06/19 [History] Anastrozole [Arimidex] 1 tab PO DAILY 02/04/20 [History] Cholecalciferol (Vitamin D3) [Vitamin D3] 2,000 units PO DAILY 02/04/20 [History] Desvenlafaxine Succinate [Pristiq] 150 mg PO DAILY 02/04/20 [History] Ibuprofen [Advil] 1 tab PO ASDIRECTED PRN 02/04/20 [History] Magnesium 250 mg PO BEDTIME 02/04/20 [History] polyethylene glycoL 3350 [MiraLAX] 1 pkt PO DAILY 02/04/20 [History] Losartan Potassium 100 mg PO DAILY 02/07/20 [History] hydroCHLOROthiazide [Hydrochlorothiazide] 12.5 mg PO DAILY 02/07/20 [History] - CURRENT (IN HOUSE) MEDS Current Meds: Current Medications Lactated Ringer's (Ringers, Lactated) 1,000 mls @ 125 mls/hr IV ASDIRECTED SMITH Discontinued Medications Cefoxitin Sodium 2 gm/ Premix 50 mls @ 100 mls/hr IV ONETIME ONE Stop: 02/08/20 07:29
[2020-02-08] MEDS ORDERED: Lidocaine 2% 5 ML SDV ONE (09:32)
[2020-02-08] MEDS ORDERED: Propofol 200 MG/20 ML SDV ONE ×3 (09:32→10:01)
[2020-02-08] MEDS ORDERED: ceFAZolin/Dextrose,Iso-Osmotic 2 GM/50 ML Duplex Bag IV ONE (09:51)
[2020-02-08] MEDS ORDERED: cefOXitin 1 GM Vial ONE ×2 (09:55→09:56)
[2020-02-08] MEDS ORDERED: fentaNYL 100 MCG/2 ML SDV ONE (10:03)
--- NOTE | 2020-02-08 10:24 | PCM.OPNOTE ---
- General Post-Op/Procedure Note Date of Surgery/Procedure: 02/08/20 Operative Procedure(s): Colonoscopy with cold descending colon polypectomy Pre Op Diagnosis: Intermittent rectal bleeding Post-Op Diagnosis: Descending colon polyp. Internal hemorrhoids. Anesthesia Technique: MAC (ASA II) Primary Surgeon: Roel Chaparro Condition: Good Free Text/Narrative:: DICTATION 607188 CPT CODE 61384
[2020-02-08] MEDS ORDERED: Lactated Ringers 1,000 ML IV SCH (10:30)
[2020-02-08 10:40] VITALS: BP 137/75; PULSE 63
--- NOTE | 2020-02-08 10:49 | PCM.POSTAN ---
POST ANESTHESIA ASSESSMENT - MENTAL STATUS Mental Status: Alert, Oriented - VITAL SIGNS Vital Signs: Last Vital Signs Temp 97.2 F 02/08/20 10:21 Pulse 63 02/08/20 10:37 Resp 11 L 02/08/20 10:37 BP 137/75 02/08/20 10:37 Pulse Ox 99 02/08/20 10:37 - RESPIRATORY Respiratory Status: Respiratory Rate WNL, Airway Patent, O2 Saturation Stable - CARDIOVASCULAR CV Status: Pulse Rate WNL, Blood Pressure Stable - GASTROINTESTINAL GI Status: No Symptoms - POST OP HYDRATION Hydration Status: Adequate & Stable
--- NOTE | 2020-02-08 11:39 | PCM48HPAN ---
Post Anesthesia Note - EVALUATION WITHIN 48HRS OF ANESTHETIC Vital Signs in Normal Range: Yes Patient Participated in Evaluation: Yes Respiratory Function Stable: Yes Airway Patent: Yes Cardiovascular Function Stable: Yes Hydration Status Stable: Yes Pain Control Satisfactory: Yes Nausea and Vomiting Control Satisfactory: Yes Mental Status Recovered: Yes Vital Signs: Last Vital Signs Temp 97.2 F 02/08/20 10:21 Pulse 63 02/08/20 10:37 Resp 11 L 02/08/20 10:37 BP 137/75 02/08/20 10:37 Pulse Ox 99 02/08/20 10:37
--- NOTE | 2020-02-08 14:22 | OR ---
SURGEON: Roel Chaparro M.D. DATE OF PROCEDURE: 02/08/2020 OPERATION PERFORMED: Colonoscopy with cold descending colon polypectomy. PRIMARY SURGEON: Roel Chaparro MD ANESTHESIA: MAC. ASA CLASSIFICATION: II. PREOPERATIVE DIAGNOSIS: Intermittent rectal bleeding. POSTOPERATIVE DIAGNOSES: 1. Descending colon polyp. 2. Internal hemorrhoids. DESCRIPTION OF PROCEDURE: The patient was taken to the endoscopy room and positioned on the endoscopy table in the left lateral decubitus position. Time-out was called for appropriate identification of the patient and procedure. Monitored anesthesia care was provided. The colonoscope was inserted into the rectum and advanced with minimal difficulty to the cecum. The cecum was identified by internal landmarks and external pressure. The colonoscope was retroflexed to visualize the ascending colon from below, then straightened and slowly withdrawn. The cecum, ascending colon, hepatic flexure, transverse colon, and splenic flexure showed no tumors, polyps, diverticula, or angiodysplastic changes. One small polyp was encountered in the descending colon and removed with the cold biopsy forceps. No bleeding was noted. The remainder of the descending colon, sigmoid colon, and rectum showed no tumors, polyps, or diverticular changes. The patient did have internal hemorrhoids that were visualized as the scope was retroflexed in the rectum. No polyps were encountered in the rectum and there was no evidence of inflammatory bowel disease. The colonoscope was then straightened, the rectum aspirated, and the colonoscope removed. The patient tolerated the procedure well and was taken to recovery room in stable condition. MAIDA / YAHAIRA /[id number]
== END 2020-02-08 11:30 | disposition home or self-care (01) ==
LOC: MW.SDS 08:21
PROVIDERS: ATTEND Surgery
DX: D12.4 Benign neoplasm of descending colon (principal); K64.8 Other hemorrhoids; E78.00 Pure hypercholesterolemia, unspecified; I10 Essential (primary) hypertension; G47.30 Sleep apnea, unspecified; E66.9 Obesity, unspecified; F41.9 Anxiety disorder, unspecified; F32.9 Major depressive disorder, single episode, unspecified; F43.10 Post-traumatic stress disorder, unspecified; M81.0 Age-related osteoporosis without current pathological fracture; Z79.899 Other long term (current) drug therapy; Z98.890 Other specified postprocedural states; Z68.33 Body mass index [BMI] 33.0-33.9, adult
CPT/HCPCS: 45380; J0694; J2001; J2704; J3010; J7120

== ENCOUNTER 2021-01-27 17:46 | Emergency (ER) | payer MEDICARE, BC ==
--- NOTE | 2021-01-27 18:14 | EDM.PDOC ---
ED HPI GENERAL MEDICAL PROBLEM - General Chief Complaint: Upper Extremity Injury/Pain Stated Complaint: FELL AND HURT RT ARM Time Seen by Provider: 01/27/21 17:49 Source of Information: Reports: Patient History Limitations: Reports: No Limitations - History of Present Illness INITIAL COMMENTS - FREE TEXT/NARRATIVE: Presents reporting right shoulder arm and wrist pain after a mechanical fall from a standing position. She states that she was walking from carpet to bare floor when she slipped or tripped falling onto her right outstretched arm. Then she has had severe pain in her right shoulder, arm and wrist. She has a history of panic attacks and falls. She always has difficulty getting up after her falls. right shoulder Pain Score (Numeric/FACES): 4 - Related Data Allergies Allergy/AdvReac Type Severity Reaction Status Date / Time adhesive tape Allergy Blisters Verified 01/27/21 17:51 Home Meds: Home Meds Rosuvastatin [Crestor] 10 mg PO DAILY 10/17/18 [History] Anastrozole [Arimidex] 1 tab PO DAILY 02/04/20 [History] Desvenlafaxine Succinate [Pristiq] 150 mg PO DAILY 02/04/20 [History] Losartan Potassium 100 mg PO DAILY 02/07/20 [History] hydroCHLOROthiazide [Hydrochlorothiazide] 12.5 mg PO DAILY 02/07/20 [History] Potassium Chloride 10 meq PO DAILY 01/27/21 [History] oxyCODONE HCl/Acetaminophen [Oxycodone-Acetaminophen 5-325] 1 tab PO Q6HR PRN #30 tablet 01/27/21 [Rx] Past Medical History - Past Health History Medical/Surgical History: Denies Medical/Surgical History HEENT History: Reports: Cataract, Macular Degeneration, Other (See Below) Other HEENT History: wears glasses Cardiovascular History: Reports: High Cholesterol, Hypertension, Other (See Below) Other Cardiovascular History: enlarged left ventrial Respiratory History: Reports: Sleep Apnea Other Respiratory History: uses CPAP. 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: Musculoskeletal History: Reports: Back Pain, Chronic, Osteoarthritis Other Musculoskeletal History: spinal stenosis, Neurological History: Reports: Concussion, Head Trauma Other Neuro History: small brain bleed due to fall in Mar 2017 Psychiatric History: Reports: Anxiety, Depression, Panic Attack, PTSD Endocrine/Metabolic History: Reports: Obesity/BMI 30+ Hematologic History: Reports: None Immunologic History: Reports: None Oncologic (Cancer) History: Reports: Breast Dermatologic History: Reports: None - Infectious Disease History Infectious Disease History: Reports: Chicken Pox, Mumps - Past Surgical History Head Surgeries/Procedures: Reports: None HEENT Surgical History: Reports: Cataract Surgery Cardiovascular Surgical History: Reports: None Respiratory Surgical History: Reports: None GI Surgical History: Reports: Colonoscopy Female Surgical History: Reports: Breast Biopsy, Hysterectomy, Mastectomy, Salpingo-Oophorectomy Other Female Surgeries/Procedures: left modified mastectomy Endocrine Surgical History: Reports: None Neurological Surgical History: Reports: None Musculoskeletal Surgical History: Reports: Carpal Tunnel, Knee Replacement Other Musculoskeletal Surgeries/Procedures:: right TKA, [facility] Oncologic Surgical History: Reports: Biopsy of Breast, Mastectomy Dermatological Surgical History: Reports: None Social & Family History - Family History Family Medical History: No Pertinent Family History - Caffeine Use Caffeine Use: Reports: Soda - Recreational Drug Use Recreational Drug Use: No Review of Systems - Review of Systems Review Of Systems: Comprehensive ROS is negative, except as noted in HPI. ED EXAM, GENERAL - Physical Exam Exam: See Below Exam Limited By: No Limitations General Appearance: Alert, No Apparent Distress Ears: Normal External Exam Nose: Normal Inspection Throat/Mouth: Normal Inspection Head: Atraumatic, Normocephalic Neck: Normal Inspection Respiratory/Chest: No Respiratory Distress, Lungs Clear, Normal Breath Sounds Cardiovascular: Normal Peripheral Pulses, Regular Rate, Rhythm, No Murmur Extremities: Normal Inspection, Other (tenderness right shoulder. ROM limited by pain in right wrist, elbow and shoulder. No swelling, erythema, ecchymosis, deformity. CMS intact distally and radial pulse strong.) Neurological: Alert, Oriented Psychiatric: Normal Affect, Normal Mood Skin Exam: Warm, Dry, Intact, Normal Color Lymphatic: No Adenopathy Course - Vital Signs Text/Narrative:: Discussion with Dr. Villa Damon, Orthopedics, [facility]. Recommended treat patient with sling, pain medications. Follow-up with him in the clinic this week or early next week. Last Recorded V/S: Last Vital Signs Temp 36.6 C 01/27/21 17:47 Pulse 83 01/27/21 17:47 Resp 17 01/27/21 17:47 BP 169/87 H 01/27/21 17:47 Pulse Ox 96 01/27/21 17:47 - Orders/Labs/Meds Orders: Active Orders 24 hr Category Date Time Status EKG Documentation Completion [RC] STAT Care 01/27/21 17:55 Active Shoulder Comp Rt [CR] Stat Exams 01/27/21 18:01 Ordered Wrist Comp Min 3V Rt [CR] Stat Exams 01/27/21 18:06 Ordered Departure - Departure Time of Disposition: 19:06 Disposition: Home, Self-Care 01 Condition: Good Clinical Impression: Humeral head fracture Qualifiers: Encounter type: initial encounter Fracture type: closed Laterality: right Qualified Code(s): S42.291A - Other displaced fracture of upper end of right humerus, initial encounter for closed fracture - Discharge Information Forms: ED Department Discharge Additional Instructions: The following information is given to patients seen in the emergency department who are being discharged to home. This information is to outline your options for follow-up care. We provide all patients seen in our emergency department with a follow-up referral. The need for follow-up, as well as the timing and circumstances, are variable depending upon the specifics of your emergency department visit. If you don't have a primary care physician on staff, we will provide you with a referral. We always advise you to contact your personal physician following an emergency department visit to inform them of the circumstance of the visit and for follow-up with them and/or the need for any referrals to a consulting specialist. The emergency department will also refer you to a specialist when appropriate. This referral assures that you have the opportunity for follow-up care with a specialist. All of these measure are taken in an effort to provide you with optimal care, which includes your follow-up. Under all circumstances we always encourage you to contact your private physician who remains a resource for coordinating your care. When calling for follow-up care, please make the office aware that this follow-up is from your recent emergency room visit. If for any reason you are refused follow-up, please contact the [facility] Emergency Department at and asked to speak to the emergency department charge nurse. 1. Call Maura Muller to orthopedic clinic tomorrow morning. [phone]. Talk to "Sandie". Appointment with Dr. Damon this week. He has been notified and is expecting your visit. 2. Sling right arm at all times. 3. Percocet 1 every 6-8 hours as needed for pain. Sepsis Event Note (ED) - Evaluation Sepsis Screening Result: No Definite Risk - Focused Exam Vital Signs: Vital Signs Temp Pulse Resp BP Pulse Ox 01/27/21 17:47 36.6 C 83 17 169/87 H 96 - My Orders Last 24 Hours: My Active Orders 01/27/21 17:55 EKG Documentation Completion [RC] STAT 01/27/21 18:01 Shoulder Comp Rt [CR] Stat 01/27/21 18:06 Wrist Comp Min 3V Rt [CR] Stat - Assessment/Plan Last 24 Hours: My Active Orders 01/27/21 17:55 EKG Documentation Completion [RC] STAT 01/27/21 18:01 Shoulder Comp Rt [CR] Stat 01/27/21 18:06 Wrist Comp Min 3V Rt [CR] Stat
--- NOTE | 2021-01-27 18:26 | PCM.EKG ---
#1 Interpretation EKG Date: 01/27/21 Time: 17:50 Rhythm: NSR Rate (Beats/Min): 84 [place]: LAD-Left [place] Deviation P-Wave: Present QRS: Normal ST-T: Normal QT: Normal
[2021-01-27] MEDS ORDERED: Acetaminophen/oxyCODONE 325-10 MG Tab PO ONE (19:04)
[2021-01-27 19:30] VITALS: BP 140/75; PULSE 79
--- NOTE | 2021-01-27 20:04 | CR ---
INDICATION: Fall. Right wrist pain. FINDINGS: The views of the right wrist were obtained. There is no acute fracture seen or dislocation. There is a well corticated calcification seen anterior to the proximal carpal bones of the lateral which could be an chip fracture or joint body. There are mild degenerative changes in the 1st carpometacarpal joint and in the radiocarpal joint. IMPRESSION: No acute bone abnormality. Dictated by Ramesh Ramos MD @ 01/27/2021 8:03:[address] Ramesh Ramos @ Jan 27 2021 8:03PM
--- NOTE | 2021-01-27 20:08 | CR ---
INDICATION: Fall. Shoulder pain. FINDINGS: Two views of the knee right shoulder were obtained. There is a comminuted mildly displaced fracture in the proximal humerus. There is no dislocation. There are tendon anchors in the humeral head. IMPRESSION: Mildly displaced committed fracture proximal humerus. Dictated by Ramesh Ramos MD @ 01/27/2021 8:06:[address] Ramesh Ramos @ Jan 27 2021 8:06PM
== END 2021-01-27 19:30 | disposition home or self-care (01) ==
LOC: MW.ED 17:46
DX: S42.201A Unspecified fracture of upper end of right humerus, initial encounter for closed fracture (principal); E78.00 Pure hypercholesterolemia, unspecified; I10 Essential (primary) hypertension; E66.9 Obesity, unspecified; Z68.34 Body mass index [BMI] 34.0-34.9, adult; Z91.048 Other nonmedicinal substance allergy status; Z79.899 Other long term (current) drug therapy; W01.0XXA Fall on same level from slipping, tripping and stumbling without subsequent striking against object, initial encounter; Y93.01 Activity, walking, marching and hiking
CPT/HCPCS: 73030; 73110; 93005; 99284; A9270

== ENCOUNTER 2021-02-06 14:23 | Emergency (ER) | payer MEDICARE, BC ==
[2021-02-06] MEDS ORDERED: Acetaminophen/oxyCODONE 325-5 MG Tab PO ONE (14:24)
--- NOTE | 2021-02-06 14:26 | EDM.PDOC ---
ED HPI GENERAL MEDICAL PROBLEM - General Stated Complaint: R BROKEN ARM Time Seen by Provider: 02/06/21 14:23 Source of Information: Reports: Patient History Limitations: Reports: No Limitations - History of Present Illness INITIAL COMMENTS - FREE TEXT/NARRATIVE: 70-year-old female presents for fall. Patient has a known right humerus fracture diagnosed last week. She is in a sling and is followed up with orthopedics who told her that her injury is nonsurgical and they are going to allow it to heal on its own. Patient today tripped falling and landing on her right arm. She noted worsening pain. She denies hitting her head or LOC. She is not on any blood thinning medications. She is ambulated after the fall. Her only complaint is pain in the arm. right arm Pain Score (Numeric/FACES): 8 - Related Data Allergies Allergy/AdvReac Type Severity Reaction Status Date / Time adhesive tape Allergy Blisters Verified 02/06/21 14:31 Home Meds: Home Meds Rosuvastatin [Crestor] 10 mg PO DAILY 10/17/18 [History] Anastrozole [Arimidex] 1 tab PO DAILY 02/04/20 [History] Desvenlafaxine Succinate [Pristiq] 200 mg PO DAILY 02/04/20 [History] Losartan Potassium 100 mg PO DAILY 02/07/20 [History] hydroCHLOROthiazide [Hydrochlorothiazide] 12.5 mg PO DAILY 02/07/20 [History] Potassium Chloride 10 meq PO DAILY 01/27/21 [History] oxyCODONE HCl/Acetaminophen [Oxycodone-Acetaminophen 5-325] 1 tab PO Q6HR PRN #30 tablet 01/27/21 [Rx] Past Medical History - Past Health History Medical/Surgical History: Denies Medical/Surgical History HEENT History: Reports: Cataract, Macular Degeneration, Other (See Below) Other HEENT History: wears glasses Cardiovascular History: Reports: High Cholesterol, Hypertension, Other (See Below) Other Cardiovascular History: enlarged left ventrial Respiratory History: Reports: Sleep Apnea Other Respiratory History: uses CPAP. 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: Musculoskeletal History: Reports: Back Pain, Chronic, Osteoarthritis Other Musculoskeletal History: spinal stenosis, Neurological History: Reports: Concussion, Head Trauma Other Neuro History: small brain bleed due to fall in Mar 2017 Psychiatric History: Reports: Anxiety, Depression, Panic Attack, PTSD Endocrine/Metabolic History: Reports: Obesity/BMI 30+ Hematologic History: Reports: None Immunologic History: Reports: None Oncologic (Cancer) History: Reports: Breast Dermatologic History: Reports: None - Infectious Disease History Infectious Disease History: Reports: Chicken Pox, Mumps - Past Surgical History Head Surgeries/Procedures: Reports: None HEENT Surgical History: Reports: Cataract Surgery Cardiovascular Surgical History: Reports: None Respiratory Surgical History: Reports: None GI Surgical History: Reports: Colonoscopy Female Surgical History: Reports: Breast Biopsy, Hysterectomy, Mastectomy, Salpingo-Oophorectomy Other Female Surgeries/Procedures: left modified mastectomy Endocrine Surgical History: Reports: None Neurological Surgical History: Reports: None Musculoskeletal Surgical History: Reports: Carpal Tunnel, Knee Replacement Other Musculoskeletal Surgeries/Procedures:: right TKA, [facility] Oncologic Surgical History: Reports: Biopsy of Breast, Mastectomy Dermatological Surgical History: Reports: None Social & Family History - Family History Family Medical History: No Pertinent Family History - Caffeine Use Caffeine Use: Reports: Soda ED ROS GENERAL - Review of Systems Review Of Systems: Comprehensive ROS is negative, except as noted in HPI. 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) Neurological: Alert, Normal Cognition, Normal Gait Psychiatric: Normal Affect, Normal Mood Skin Exam: Warm, Dry, Intact, Normal Color Course - Vital Signs Last Recorded V/S: Last Vital Signs Temp 97.8 F 02/06/21 14:23 Pulse 103 H 02/06/21 14:23 Resp 18 02/06/21 14:23 BP 168/72 H 02/06/21 14:23 Pulse Ox 94 L 02/06/21 14:23 - Orders/Labs/Meds Meds: Medications Discontinued Medications Generic Name Dose Route Start Last Admin Trade Name Bethany PRN Reason Stop Dose Admin Oxycodone/Acetaminophen 2 tab 02/06/21 14:24 02/06/21 14:42 Acetaminophen/Oxycodone 325-5 Mg Tab PO 02/06/21 14:25 2 tab ONETIME ONE Administration - Re-Assessments/Exams Free Text/Narrative Re-Assessment/Exam: 02/06/21 14:26 Will get repeat XR to ensure stability of known humerus fx 02/06/21 15:03 X-ray redemonstrates the fracture without evidence of any changes from prior. There is subtle callus formation showing that the fracture is healing. Will discharge patient with orthopedic follow-up. Departure - Departure Time of Disposition: 15:03 Disposition: Home, Self-Care 01 Condition: Good Clinical Impression: Humerus fracture Qualifiers: Encounter type: subsequent encounter Fracture type: closed Fracture morphology: unspecified fracture morphology Fracture alignment: displaced Laterality: right Fracture healing: with routine healing - Discharge Information Instructions: Humerus Fracture Treated With Immobilization Additional Instructions: Imaging does not reveal any substantial changes from prior imaging. It appears that things are healing appropriately. Please continue to wear your sling. Please follow-up with your orthopedic physician. The following information is given to patients seen in the emergency department who are being discharged to home. This information is to outline your options for follow-up care. We provide all patients seen in our emergency department with a follow-up referral. The need for follow-up, as well as the timing and circumstances, are variable depending upon the specifics of your emergency department visit. If you don't have a primary care physician on staff, we will provide you with a referral. We always advise you to contact your personal physician following an emergency department visit to inform them of the circumstance of the visit and for follow-up with them and/or the need for any referrals to a consulting speci alist. The emergency department will also refer you to a specialist when appropriate. This referral assures that you have the opportunity for follow-up care with a specialist. All of these measure are taken in an effort to provide you with optimal care, which includes your follow-up. Under all circumstances we always encourage you to contact your private physician who remains a resource for coordinating your care. When calling for follow-up care, please make the office aware that this follow-up is from your recent emergency room visit. If for any reason you are refused follow-up, please contact the [facility] Emergency Department at and asked to speak to the emergency department charge nurse. Please follow up with your primary care physician. If you do not have a primary care physician, see below: [facility] [address] [place] [id number] [facility] [address] [place] [address] [facility] [address] [address] Sepsis Event Note (ED) - Focused Exam Vital Signs: Vital Signs Temp Pulse Resp BP Pulse Ox 02/06/21 14:23 97.8 F 103 H 18 168/72 H 94 L
--- NOTE | 2021-02-06 15:00 | CR ---
Indication: Humerus fracture. Re-injury. Technique: Right humerus 2 views Comparison: January 27, 2021 Findings: Bones: Again demonstrated is a minimally displaced and mildly comminuted fracture in the proximal right humeral shaft and neck. Subtle callus formation demonstrated. No new or worsening fracture. No dislocation. No new injury. Joint spaces: Unremarkable. Soft tissues: Unremarkable. Dictated by Patric Li MD @ 02/06/2021 2:59:[address] Patric Li @ Feb 06 2021 2:59PM
[2021-02-06 15:11] VITALS: BP 151/70; PULSE 95
== END 2021-02-06 15:11 | disposition home or self-care (01) ==
LOC: MW.ED 14:23
DX: S42.391D Other fracture of shaft of right humerus, subsequent encounter for fracture with routine healing (principal); S50.01XA Contusion of right elbow, initial encounter; E78.00 Pure hypercholesterolemia, unspecified; I10 Essential (primary) hypertension; E66.9 Obesity, unspecified; Z91.048 Other nonmedicinal substance allergy status; Z79.899 Other long term (current) drug therapy; Z68.34 Body mass index [BMI] 34.0-34.9, adult; W01.0XXA Fall on same level from slipping, tripping and stumbling without subsequent striking against object, initial encounter
CPT/HCPCS: 73060; 99283; A9270

== ENCOUNTER 2023-05-10 14:23 | Emergency (ER) | payer SELFPAY | END 2023-05-10 19:12 | disposition left against medical advice (07) | LOC: EDBD → MERGE 14:23 → MW.ED 14:23 | DX: Z53.21 Procedure and treatment not carried out due to patient leaving prior to being seen by health care provider (principal) ==

== ENCOUNTER 2023-05-10 14:42 | Emergency (ER) | payer MEDICARE, BC ==
[2023-05-10] MEDS ORDERED: Acetaminophen/HYDROcodone 325-5 MG Tab PO ONE (14:44)
[2023-05-10 19:11] VITALS: BP 152/65; PULSE 96
== END 2023-05-10 17:20 | disposition home or self-care (01) ==
LOC: MW.ED 14:42
DX: S82.832A Other fracture of upper and lower end of left fibula, initial encounter for closed fracture (principal); S93.401A Sprain of unspecified ligament of right ankle, initial encounter; M25.511 Pain in right shoulder; E78.00 Pure hypercholesterolemia, unspecified; I10 Essential (primary) hypertension; M19.90 Unspecified osteoarthritis, unspecified site; E66.9 Obesity, unspecified; Z68.32 Body mass index [BMI] 32.0-32.9, adult; Z91.048 Other nonmedicinal substance allergy status; Z79.899 Other long term (current) drug therapy; X50.1XXA Overexertion from prolonged static or awkward postures, initial encounter
CPT/HCPCS: 73030; 73610; 99283; A9270

== ENCOUNTER 2023-07-12 15:43 | Emergency (ER) | payer MEDICARE, BC ==
[2023-07-12 17:23] LABS: BASOPHILS ABSOLUTE AUTO 0.02 K/uL (0.00-0.20); BASOPHILS PERCENT AUTO 0.2 % (0.0-1.0); EOSINOPHILS ABSOLUTE AUTO 0.11 K/uL (0.00-0.45); EOSINOPHILS PERCENT AUTO 1.2 % (0.0-6.0); HEMATOCRIT 43.7 % (37.0-47.0); HEMOGLOBIN 14.1 g/dL (12.0-16.0); IMMATURE GRAN ABSOLUTE AUTO 0.02 K/uL (0.00-0.05); IMMATURE GRAN PERCENT AUTO 0.2 % (0.0-0.4); LYMPHOCYTES ABSOLUTE AUTO 1.41 K/uL (1.00-4.80); MEAN CORPUSCULAR HGB CONC 32.3 g/dL (32.0-36.0); MONOCYTES ABSOLUTE AUTO 0.78 K/uL (0.00-0.80); MONOCYTES PERCENT AUTO 8.3 % (0.0-8.0); NEUTROPHILS ABSOLUTE AUTO 7.08 K/uL (1.80-7.70); NEUTROPHILS PERCENT AUTO 75.1 % (41.0-71.0); PLATELET COUNT,PLT 249 K/uL (150-400); WHITE BLOOD CELL COUNT,WBC 9.42 K/uL (3.9-11.3)
[2023-07-12 17:40] LABS: CALCIUM 9.3 mg/dL (8.5-10.1); CARBON DIOXIDE,CO2 31.5 mmol/L (21.0-32.0); CREATININE 1.2 mg/dL (0.6-1.0); EST CRCL DRUG DOSING (CG) 39.09 mL/min
[2023-07-12] MEDS ORDERED: Acetaminophen 325 MG Tab PO ONE (18:16)
[2023-07-12 20:19] VITALS: BP 153/85; PULSE 94
== END 2023-07-12 20:18 | disposition home or self-care (01) ==
LOC: MW.ED 15:43
DX: S09.90XA Unspecified injury of head, initial encounter (principal); M25.511 Pain in right shoulder; W19.XXXA Unspecified fall, initial encounter; Z91.048 Other nonmedicinal substance allergy status
CPT/HCPCS: 36415; 70450; 72125; 73030; 73060; 80048; 85025; 93005; 99285; A9270

== ENCOUNTER 2023-12-28 12:33 | Emergency (ER) | payer BC, MEDICARE ==
[2023-12-28 13:13] LABS: BASOPHILS ABSOLUTE AUTO 0.03 K/uL (0.00-0.20); BASOPHILS PERCENT AUTO 0.5 % (0.0-1.0); EOSINOPHILS ABSOLUTE AUTO 0.18 K/uL (0.00-0.45); EOSINOPHILS PERCENT AUTO 2.8 % (0.0-6.0); HEMATOCRIT 43.1 % (37.0-47.0); IMMATURE GRAN ABSOLUTE AUTO 0.02 K/uL (0.00-0.05); IMMATURE GRAN PERCENT AUTO 0.3 % (0.0-0.4); LYMPHOCYTES ABSOLUTE AUTO 1.49 K/uL (1.00-4.80); LYMPHOCYTES PERCENT AUTO 23.4 % (24.0-44.0); MEAN CORPUSCULAR HEMOGLOBIN 30.4 pg (28.0-32.0); MEAN CORPUSCULAR HGB CONC 32.5 g/dL (32.0-36.0); MEAN CORPUSCULAR VOLUME 93.5 fL (83.0-99.0); MEAN PLATELET VOLUME 9.5 fL (9.4-12.3); MONOCYTES ABSOLUTE AUTO 0.56 K/uL (0.00-0.80); MONOCYTES PERCENT AUTO 8.8 % (0.0-8.0); NEUTROPHILS ABSOLUTE AUTO 4.09 K/uL (1.80-7.70); NEUTROPHILS PERCENT AUTO 64.2 % (41.0-71.0); PLATELET COUNT,PLT 212 K/uL (150-400); RED BLOOD CELL COUNT 4.61 M/uL (4.10-5.30); WHITE BLOOD CELL COUNT,WBC 6.37 K/uL (3.9-11.3)
[2023-12-28 13:32] VITALS: BP 163/74; PULSE 86
[2023-12-28 13:43] LABS: ALBUMIN 3.5 g/dL (3.4-5.0); BILIRUBIN TOTAL 0.4 mg/dL (0.2-1.0); CALCIUM 8.9 mg/dL (8.5-10.1); CARBON DIOXIDE,CO2 29.4 mmol/L (21.0-32.0); EST CRCL DRUG DOSING (CG) 49.79 mL/min; POTASSIUM,K 3.5 mmol/L (3.5-5.1); PROTEIN TOTAL,TP 6.9 g/dL (6.4-8.2)
[2023-12-28] MEDS: Acetaminophen 325 MG Tab PO ONE (14:03)
== END 2023-12-28 15:29 | disposition home or self-care (01) ==
LOC: MW.ED 12:33
DX: S09.90XA Unspecified injury of head, initial encounter (principal); I10 Essential (primary) hypertension; E78.00 Pure hypercholesterolemia, unspecified; E66.9 Obesity, unspecified; Z90.710 Acquired absence of both cervix and uterus; Z68.34 Body mass index [BMI] 34.0-34.9, adult; Z79.899 Other long term (current) drug therapy; Z91.048 Other nonmedicinal substance allergy status; Z75.8 Other problems related to medical facilities and other health care; W19.XXXA Unspecified fall, initial encounter
CPT/HCPCS: 36415; 70450; 71045; 72131; 80053; 84484; 85025; 93005; 99285; A9270; 93010; 99283

== ENCOUNTER 2024-03-12 10:04 | Day surgery (SDC) | payer MEDICARE, BC ==
[2024-03-12] MEDS: Lactated Ringers 1,000 ML IV SCH (10:39)
[2024-03-12] MEDS ORDERED: propofoL 50 ML ONE (10:44)
[2024-03-12] MEDS ORDERED: Lactated Ringers 1,000 ML IV SCH (11:30)
[2024-03-12 13:14] VITALS: BP 128/69; PULSE 75
== END 2024-03-12 12:16 | disposition home or self-care (01) ==
LOC: MW.SDS 10:04
PROVIDERS: ATTEND Surgery
DX: K62.5 Hemorrhage of anus and rectum (principal); K64.8 Other hemorrhoids; J44.9 Chronic obstructive pulmonary disease, unspecified; I10 Essential (primary) hypertension; F32.A Depression, unspecified; E78.00 Pure hypercholesterolemia, unspecified; E66.9 Obesity, unspecified; Z86.010 Personal history of colon polyps; Z91.09 Other allergy status, other than to drugs and biological substances; Z79.899 Other long term (current) drug therapy; Z68.35 Body mass index [BMI] 35.0-35.9, adult
CPT/HCPCS: 45378; J2704; J7120; 00811; 99100